=== PATIENT | female | born 1960 | race Caucasian/White ===

== ENCOUNTER → 2024-07-07 15:00 | Outpatient (BNVA) | payer MEDICAID, SELFPAY | PROVIDERS: Visit Provider Internal Medicine Hypertension Specialist | DX: I12.9 Hypertensive chronic kidney disease with stage 1 through stage 4 chronic kidney disease, or unspecified chronic kidney disease (principal); E11.22 Type 2 diabetes mellitus with diabetic chronic kidney disease; N18.2 Chronic kidney disease, stage 2 (mild); E66.9 Obesity, unspecified; R80.9 Proteinuria, unspecified; Z68.42 Body mass index [BMI] 45.0-49.9, adult | CPT/HCPCS: 99202 ==

== ENCOUNTER 2024-07-07 15:03 | Outpatient (AMB) | payer MEDICAID, SELFPAY ==
--- NOTE | 2024-07-07 15:05 | HO.NEPHOV ---
Vital Signs 07/07/24 15:06 Height 5 ft 7 in Weight 288 lb BMI 45.1 BP 148/94 H Blood Pressure Location Lt brachial Position Sitting Pulse 88 Pulse Source Pulse Oximeter Pulse Oximetry (%) 97 Intake Visit Reasons: CKD stage 2/ LVM Pharmaceutical Scientist Required: No Accompanied by: Children Allergies peanut Allergy (Unknown, Verified 07/07/24 15:09) Unknown Penicillins Allergy (Unknown, Verified 07/07/24 15:09) Unknown Medication List - Last Reconciled 07/07/24 by Koby Davalos MD acetaminophen (Tylenol) 325 mg PO QID PRN cholecalciferol (vitamin D3) 1,250 mcg PO QWEEK clonazepam 2 mg PO BID PRN evolocumab (Repatha Syringe) mg subcut Q2W ferrous sulfate 27 mg PO DAILY fluoxetine 60 mg PO DAILY iron aspgly,[id number] 150-60-25-1 wp-[id number]-[id number]-mg (Ferrex) 1 cap PO DAILY metaxalone 800 mg PO BID metformin 850 mg PO BID pantoprazole 40 mg PO DAILY propranolol 10 mg PO BID tramadol 50 mg PO BID PRN HPI Comments Details: Sonya is a pleasant 64-year-old man with a history of obesity diabetes mellitus and hypertension. She was found to have microalbuminuria and hence this referral. She was prescribed semaglutide but she was not take Can this yet. She is not on any ENZO inhibitors or ARB is. She is on propranolol which apparently was given few years ago for hypertension. She was accompanied by her family members. [facility] Medical History (Updated 07/07/24 @ 15:27 by Koby Davalos MD) Hypercholesteremia Hyperparathyroidism Hypercalcemia Restrictive lung disease Essential hypertension Hypertensive heart disease without heart failure Chronic pain disorder Tachycardia Migraine GERD (gastroesophageal reflux disease) Osteoarthritis Anxiety and depression Type 2 diabetes mellitus Review of Systems Const Denies fever(s) and Denies weight loss Card Denies chest pain Resp Denies cough and Denies hemoptysis GI Denies abdominal pain, Denies diarrhea and Denies nausea Musc Denies back pain Neuro Denies focal weakness Physical Exam Vital Signs: Last Vital Signs Pulse 88 07/07/24 15:06 BP 148/94 H 07/07/24 15:06 Pulse Ox 97 07/07/24 15:06 BMI result Body Mass Index 45.1 Const General: comfortable; No acute distress Nutritional Appearance: obese Orientation/consciousness: patient oriented x3 Eyes General: appearance normal, both eyes and all related structures Visual Armas: normal visual armas by confrontation Neck Neck: Yes supple and Yes no JVD Resp Effort & Inspection: normal respiratory effort and respiratory effort not decreased Auscultation: rhonchi Cardio Palpation: no palpable S3 and no palpable S4 Heart sounds: no rubs GI Inspection: Yes normal to inspection Palpation (GI): Soft to palpation Percussion: Yes normal to percussion Auscultation: normal bowel sounds General: Yes no CVA tenderness Back/Spine/Pelvis Back: no CVA tenderness Skin General skin exam: no petechiae and no purpura Neuro General: patient oriented x3 and no focal motor deficits Extrem General: No clubbing and No edema Results Reviewed Results Reviewed: Serum creatinine 0.8. Nephrology Results: No Data to Display Assessment & Plan Assessment & Plan (1) Microalbuminuria: Code(s): R80.9 - Proteinuria, unspecified Category: Medical (2) Essential hypertension: Code(s): I10 - Essential (primary) hypertension Category: Medical Plan 64-year-old man with obesity diabetes mellitus hypertension with microalbuminuria. Renal function stable with a serum creatinine 0.8 mg/dL. She has underlying diabetic kidney disease. Goal is to slow the portion disease Maintain A1c less than 7%. She will benefit from ENZO inhibition. I will start her on losartan 50 mg once a day. Maintain blood pressure less than 130/80 He will also benefit from SGLT2 inhibitors. Orders: Orders Basic Metabolic Panel 6 Weeks R80.9 - Proteinuria, unspecified UA and rflx microscopic 6 Weeks R80.9 - Proteinuria, unspecified Creatinine 6 Weeks R80.9 - Proteinuria, unspecified Total Protein Urine Random 6 Weeks R80.9 - Proteinuria, unspecified Medications: New losartan 50 mg PO DAILY 90 tabs 1RF Scribe Plan - Not visible on output: dc propanolol losartan 50 mg not taking semaglutide Coding Level of Care Code New Pt Level 4 (05718) Diagnoses Microalbuminuria R80.9 Essential hypertension I10
[2024-07-07 15:06] VITALS: BP 148/94; PULSE 88; O2SAT 97; BMI 45.1
== END 2024-07-07 15:32 | disposition home or self-care (01) ==
PROVIDERS: Visit Provider Internal Medicine Hypertension Specialist
DX: R80.9 Proteinuria, unspecified (principal); I10 Essential (primary) hypertension; E11.29 Type 2 diabetes mellitus with other diabetic kidney complication
CPT/HCPCS: 99204

== ENCOUNTER 2025-01-05 15:39 | Outpatient (AMB) | payer MEDICAID, SELFPAY ==
--- NOTE | 2025-01-05 15:35 | HO.NEPHOV ---
Vital Signs 01/05/25 15:37 Height 5 ft 7 in Weight 257 lb BMI 40.2 Intake Visit Reasons: FU/Conf Jet Blade Polisher Required: No Accompanied by: Self / Same As Patient Allergies peanut Allergy (Unknown, Verified 01/05/25 15:36) Unknown Penicillins Allergy (Unknown, Verified 01/05/25 15:36) Unknown Medication List - Last Reconciled 01/05/25 by Koby Davalos MD acetaminophen (Tylenol) 325 mg PO QID PRN cholecalciferol (vitamin D3) 1,250 mcg PO QWEEK clonazepam 2 mg PO BID PRN cyanocobalamin (vitamin B-12) ER 1,000 mcg PO DAILY evolocumab (Repatha Syringe) mg subcut Q2W ferrous sulfate 27 mg PO DAILY fluoxetine 60 mg PO DAILY iron aspgly,[id number] 150-60-25-1 lm-mc-qrs-mg (Ferrex) 1 cap PO DAILY metaxalone 800 mg PO BID metformin 850 mg PO BID pantoprazole 40 mg PO DAILY tramadol 50 mg PO BID PRN HPI Comments Details: Sonya is a pleasant 64-year-old woman with a history of obesity diabetes mellitus and hypertension. She was found to have microalbuminuria and hence this referral. She was prescribed semaglutide but she was not take Can this yet. She is not on any ENZO inhibitors or ARB is. She is on propranolol which apparently was given few years ago for hypertension. She was accompanied by her family members. 01/05/25 She stopped Losartan BP remains elevated c/o Knee pain [facility] Medical History (Updated 07/07/24 @ 15:27 by Koby Davalos MD) Hypercholesteremia Hyperparathyroidism Hypercalcemia Restrictive lung disease Essential hypertension Hypertensive heart disease without heart failure Chronic pain disorder Tachycardia Migraine GERD (gastroesophageal reflux disease) Osteoarthritis Anxiety and depression Type 2 diabetes mellitus Physical Exam Vital Signs: BMI result Body Mass Index 40.2 Telehealth Telehealth Telehealth Platform: Telephone Location of provider rendering services: practice address Location of patient: address on file Patient Identification confirmed using: Name, : Yes Telehealth method: voice only Patient verbally consented to treatment: Yes Patient verbally consented to billing insurance company: Yes Patient informed of any privacy concerns related to visit: Yes Minutes spent on Phone/Video with Pt.: 10 Results Reviewed Nephrology Results: No Data to Display Assessment & Plan Assessment & Plan (1) Microalbuminuria: Code(s): R80.9 - Proteinuria, unspecified Category: Medical (2) Essential hypertension: Code(s): I10 - Essential (primary) hypertension Category: Medical Plan 64-year-old woman with obesity diabetes mellitus hypertension with microalbuminuria. Renal function stable with a serum creatinine 0.8 mg/dL. She has underlying diabetic kidney disease. Goal is to slow the portion disease Maintain A1c less than 7%. She will benefit from ENZO inhibition. Discontinue losartan 50 mg once a day. Start Lisinopril 10 mg QD and monitore BP and urine protein excretion Titrate dose as tolerated Maintain blood pressure less than 130/80 She will also benefit from SGLT2 inhibitors. Medications: New lisinopril 10 mg PO DAILY 90 tabs 1RF Discontinued losartan Discontinued Reason: No Longer Medically Relevant 50 mg PO DAILY 90 tabs 1RF Coding Level of Care Code Tele Est Pt Level 3 (27812) Diagnoses Microalbuminuria R80.9 Essential hypertension I10
[2025-01-05 15:37] VITALS: BMI 40.2
--- OUTSIDE RECORDS SUMMARY | 2025-01-05 15:42 | XMS_ITS | Encounter Summary ---
Author Organization [facility] and [facility] Address [address] [place] [address] Care Team Providers Care Commercial Interior Designer Name Role Phone Linnea Leach APRN Primary Care Provider [phone] Encounter Details Date Type Department Care Team (Late st Contact Info) Description 06/21/2016 Scanned Document [facility] [address] [facility] [address] [facility] [address] [place] [address] Michael Sanchez MD [address] [address] Social History Tobacco Use Types Packs/Day Years Used Date Smoking Tobacco: Former Cigarettes 0.2 40 Comments:quit 2004 Alcohol Use Standard Drinks/Week Comments No 0 (1 standard drink = 0.6 oz pur e alcohol) Comments No Sex and Gender Information Value Date Recorded Sex Assigned at Not on file Legal Sex Female 7:30 AM EST Gender Identity Not on file Sexual Orientation Not on file Occupation Industry Job Start Date Job End Date unemployed Not on file Not on file Not on file documented as of this encounter Plan of Treatment Not on file documented as of this encounter Goals Goal Patient Goal Type Associated Problems Recent Progress Patient-Stated? Author Have 3 meals a day Diet On track( 2:37 PM EST) No Dang, Jaron Ward RD Note: Patient will try to have meals on a more regular schedule Eat more fruits and vegetables Diet On track(11/07/2 016 2:37 PM EST) No DangJaron RD Note: Increase intake of fruits and vegetables on a daily basis DSME: MONITORING Result Component No DangJaron RD Note: Patient will keep a log of her food intake and blood sugars for one week. Weight (lb) < 138.3 kg Weight 136 kg(10/08/2021 11:00 AM EST) No DangJaron RD Note: Patient will work at a first weight goal of 305# documented as of this encounter Visit Diagnoses Not on filedocumented in this encounter Additional Health Concerns Infection Onset Date Last Indicated Resolved Time R/O COVID-19 06/20/2021 06/20/2021 06/21/2021 1:42 PM EDT Assessment Noted Time PHQ-9 Depression Total Score: 2 06/12/20 15 2:52 PM EDT documented as of this encounter Care Teams Commercial Interior Designer Relationship Specialty Start Date End Date Linnea Leach APRN [address] [phone] PCP - General 04/06/21 documented as of this encounter
--- OUTSIDE RECORDS SUMMARY | 2025-01-05 15:42 | XMS_ITS ---
Author Organization [facility] Address [address] [address] Care Team Providers Care Dry Goods Inspector Name Role Phone JOSUE MORALES Primary Care Provider [phone] Allergies Allergen (clinical drug ingredient) Drug/Non Drug Allergy documented on EMR Reaction Allergy Type Onset Date Status Penicillin (uncoded) Unknown Allergy Active REASON FOR VISIT REFILL, 3-4 MO F/U Medications Medication SIG (Take, Route, Frequency, Duration) Notes Start Date End Date Status OneTouch Ultra Test Strip - USE TO TEST TWICE A DAY for 90 days Active Farxiga 5 mg 1 tab(s) orally once a day for 90 days Active Deep Sea Nasal [place]nd[place] 0.65% 2 spray(s) intranasally 4 times a day for 30 days Active Propranolol Hydrochloride 10 mg 1 tab(s) orally 2 times a day for 90 days Active Ferrex 150 Forte Plus Vitamin B Complex with C, Folic Acid and Iron 1 cap(s) orally once a day for 90 days 10/28/2024 Active D3-50 1250 mcg 1 cap(s) orally once a week for 90 day(s) Active Alcohol Pads 100CT, 100 ea - 1 topically as directed for injections for 30 day(s) Active fluticasone nasal 50 mcg/inh 1 spray(s) in each nostril once a day for 30 days Active OneTouch Ultra Soft Lancet - lancet USE TO TEST TWICE A DAY for 90 days Active ONE TOUCH METER - 1 machine subcutaneo usly twice a day for 30 day Active Doxycycline Hyclate hyclate 100 mg 1 tab(s) orally 2 times a day for 14 days 05/19/2024 Active pantoprazole 40 mg 1 tab(s) orally once a day for 90 days Active Sulfamethoxazole-Trimeth oprim DS 800 mg-160 mg as directed orally every 12 hours for 10 days 07/14/2024 Active Metformin Hydrochloride 850 take 1 tablet by mouth twice daily orally twice a day for 90 days Active losartan 50 mg 1 tab(s) orally once a day Active metaxalone 800 mg 1 tablet orally TWIC E NIGHTLY for 90 days Active clonazePAM 2 mg 1 tab(s) orally twic e a day for 90 days 01/03/2025 Active Ozempic 2 mg/3 mL (0.25 mg or 0.5 mg dose) 0.25mg subcutaneously once a week for 30 days 03/24/2024 Not-Taki ng FLUoxetine 60 mg 1 tab(s) orally once a day (in the morning) for 90 days Active Rybelsus 3 mg 1 tab(s) orally once a day for 90 days Active B12 (Cyanocobalamin) 1000 mcg 1 tab(s) orally once a day for 90 days Active Repatha Prefilled Syringe 140 mg/mL INJECT 1ML UNDER THE SKIN EVERY 2 WEEKS for 28 Active Social History AUDIT-C (Standard) Question Answer Notes Did you have a drink contain ing alcohol in the past year? Yes How often did you have six o r more drinks on one occasion in the past year? Never (0 point) How many drinks did you have on a typical day when you were drinking in the past year? 1 or 2 drinks (0 point) How often did you have a dri nk containing alcohol in the past year? Monthly or less (1 point) Points 1 Interpretation Negative Section Notes: Ex Smoker: 40 years x 0.75 ppd = 30 pack years- stopped tobacco x 20yrs. EtOH: no abuse Drugs: none Lives. 5 children and lives w/ daughter. /. Vital Signs Temperature 97 degrees Fahrenheit 01/03/2025 Blood pressure systolic 150 mm Hg 01/04/20 25 Blood pressure diastolic 100 mm Hg 025 Heart Rate 106 /min 01/03/2025 Respiratory Rate 16 /min 01/03/2025 Height 5'8 in 01/03/2025 Weight 257 lbs 01/03/2025 BMI 39.07 kg/m2 01/03/2025 Encounters Encounter Location Date Provider Diagnosis [facility] [address] [phone] 01/03/2025 JOSUE MORALES Panic attack F41.0 ; Type 2 diabetes mellitus E11.9 ; Migraine G43.909 ; HLD (hyperlipidemia) E78.5 ; Osteoarthritis M19.90 and Diabetic nephropathy associated with type 2 diabetes mellitus E11.21 Assessments Encounter Date Diagnosis (ICD Code) Assessment Notes Treatment Notes Treatment Clinical Notes Section Notes 01/03/2025 Panic attack (ICD-10 - F41.0) 01/03/2025 Type 2 diabetes mellitus (ICD-10 - E11.9) 01/03/2025 Migraine (ICD-10 - G43.909) 01/03/2025 HLD (hyperlipidemia) (ICD-10 - E78.5) 01/03/2025 Osteoarthritis (ICD-10 - M19.90) 01/03/2025 Diabetic nephropathy associated with type 2 diabetes mellitus (ICD-10 - E11.21) Plan Of Treatment Medication Medication Name Sig Start Date Stop Date Notes clonazePAM 2 mg 1 tab(s) orally twice a day for 90 days FLUoxetine 60 mg 1 tab(s) orally once a day (in the morning) for 90 days Rybelsus 3 mg 1 tab(s) orally once a day for 90 days Next Appt Details Provider Name:JOSUE CUNNINGHAM, 02/08/2025 02:30:00 PM, [address] [place] [address], [address], [place], [phone], Provider Name:JOSUE CUNNINGHAM, 02/21/2025 09:00:00 AM, [address] [place] [address], [phone], Progress Notes * CARLOSChungRODERICK TDOB:[birth year] (64 yo F)Acc No.[id number]:01/03/2025 Progress Notes Patient:?RODERICK ASTORGA Provider:?JOSUE MORALES MD :1960???Age:64 Y???Sex:Female D ate:01/03/2025 Address:[address] [place] [address], [facility] [phone] Check In:02:17 PM ESTCheck O ut:03:26 PM EST Subjective: * Chief Complaints: * ???1. REFILL, 3-4 MO F/U. * HPI: ???GENERAL:? Presents in chronic conditions followup. Taking meds w/o adverse effects. Doing well. No new complications. In good spirits. Active. No social changes. Has been having more migraines last few weeks, about 2x/week. Needs med refills. [fluoxetine, clonazepam, rybelsus]. In good spirits. Difficult to exercise. * Medical History:?Osteoarthri tis, Sinusitis, Migraines, Chronic pain disorder, Chronic sinusitis, DM2/nephropathy, CKD2/anemia, COPD/past tobacco, Anemia/vitB12/iron def, Hypercholesteremia, Vitamin D deficiency, UTI (urinary tract infection), Tachycardia, Restrictive lung disease, PVD (peripheral vascular disease), Panic attack, Other chronic pain, Left axis deviation, Left anterior hemiblock, Iron deficiency anemia, unspecified iron deficiency anemia type, Hypertensive heart disease without heart failure, Headache, migraine, intractable, GERD (gastroesophageal reflux disease), Exposure, Ex-smoker, Essential hypertension, Controlled substance agreement signed, Anxiety and depression, Anemia due to vitamin B12 deficiency, unspecified B12 deficiency, Allergic rhinitis, Hypercalcemia, Type 2 diabetes mellitus with hyperglycemia, without long-term current use of insulin, Diabetic nephropathy associated with type 2 diabetes mellitus, Hyperparathyroidism, JAKI (generalized anxiety disorder), Stage 2 chronic kidney disease, Microalbuminuria, Vitamin B deficiency, Hypertriglyceridemia, Gross hematuria, ADRIÁN (acute kidney injury). * Surgical History:?MAJOR BACK SURGERY 06/11. * Hospitalization/Major Diagno stic Procedure:?MAJOR BACK SURGERY 05/2018, Osteoarthritis of right kneww 05/20/2019. * Family History:?Father: dece ased.?Mother: .?Paternal Grand Father: .?Paternal Grand Mother: .?Maternal Grand Father: .?Maternal Grand Mother: . Siblings: alive.?Children: alive.?4 brother(s) , 1 sister(s) - healthy. 1 son(s) , 1 daughter(s) - healthy. .? * Social History:?Drug/Alcohol:?AUDIT-C (Standard)?Did you have a drink containing alcohol in the past year??Yes,?How often did you have six or more drinks on one occasion in the past year??Never (0 point),?How many drinks did you have on a typical day when you were drinking in the past year??1 or 2 drinks (0 point),?How often did you have a drink containing alcohol in the past year??Monthly or less (1 point),?Points?1,?Interpretation?Negative.?Ex Smoker: 40 years x 0.75 ppd = 30 pack years- stopped tobacco x 20yrs. EtOH: no abuse Drugs: none Lives. 5 children and lives w/ daughter. /. * Medications:?Taking Doxycycl ine Hyclate hyclate 100 mg tablet 1 tab(s) orally 2 times a day , Taking clonazePAM 2 mg tablet 1 tab(s) orally twice a day , Taking Rybelsus 3 mg tablet 1 tab(s) orally once a day , Taking FLUoxetine 60 mg tablet 1 tab(s) orally once a day (in the morning) , Taking pantoprazole 40 mg delayed release tablet 1 tab(s) orally once a day , Taking Metformin Hydrochloride 850 take 1 tablet by mouth twice daily orally twice a day , Taking Sulfamethoxazole-Trimethoprim DS 800 mg- 160 mg tablet as directed orally every 12 hours , Taking losartan 50 mg tablet 1 tab(s) orally once a day , Taking ONE TOUCH METER - 1 machine subcutaneously twice a day , Taking D3-50 1250 mcg capsule 1 cap(s) orally once a week , Taking fluticasone nasal 50 mcg/inh spray 1 spray(s) in each nostril once a day , Taking Alcohol Pads 100CT, 100 ea - 1 topically as directed for injections , Taking OneTouch Ultra Soft Lancet - lancet USE TO TEST TWICE A DAY , Taking OneTouch Ultra Test Strip - USE TO TEST TWICE A DAY , Taking Deep Sea Nasal [place] 0.65% spray 2 spray(s) intranasally 4 times a day , Taking Farxiga 5 mg tablet 1 tab(s) orally once a day , Taking Ferrex 150 Forte Plus Vitamin B Complex with C, Folic Acid and Iron capsule 1 cap(s) orally once a day , Taking Propranolol Hydrochloride 10 mg tablet 1 tab(s) orally 2 times a day , Taking Repatha Prefilled Syringe 140 mg/mL solution INJECT 1ML UNDER THE SKIN EVERY 2 WEEKS , Taking B12 (Cyanocobalamin) 1000 mcg tablet, extended release 1 tab(s) orally once a day , Taking metaxalone 800 mg tablet 1 tablet orally TWICE NIGHTLY , Not-Taking/PRN Ozempic 2 mg/3 mL (0.25 mg or 0.5 mg dose) solution 0.25mg subcutaneously once a week , Medication List reviewed and reconciled with the patient * Allergies:?Penicillin. Objective: * Vitals:?SpO2: 97, BP:150/100 , HR: 106, RR: 16, Temp: 97 F, Ht: 5'8 , Wt: 257, BMI:39.07. Assessment: * Assessment: 1.?Panic attack - F41.0???2. ?Type 2 diabetes mellitus - E11.9???3.?Migraine - G43.909???4.?HLD (hyperlipidemia) - E78.5???5.?Osteoarthritis - M19.90???6.?Diabetic nephropathy associated with type 2 diabetes mellitus - E11.21??? Plan: * Treatment: 2.?Type 2 diabetes mellitus? Refill Rybelsus tablet, 3 mg, 1 tab(s), orally, once a day, 90 days, 90 Tablet, Refills 4.?? 3.?Others? Refill FLUoxetine tablet, 60 mg, 1 tab(s), orally, once a day (in the morning), 90 days, 90 tab, Refills 3.?? Care Plan: * Problems:? * Care Plan Details* * Electronic signature of CINHTYA MORALES MD on 01/05/2025 at 03:41 PM EDT Sign off status: Pending * Provider:?JOSUE MORALES MD Date:?07/2025 Generated for Daniel abdi/David/Margarito on:?01/05/2025 03:41 PM EDT
--- OUTSIDE RECORDS SUMMARY | 2025-01-05 15:43 | XMS_ITS | Encounter Summary ---
Author Organization [facility] Address [address] [place] [address] Care Team Providers Care Manager Telecom Name Role Phone Linnea Leach APRN Primary Care Provider [phone] Reason for Referral * Consultation (Routine) - Closed Specialty Diagnoses / Procedures Referred By Contact Referred To Contact Endocrinology, Diabetes & Metabolism / Endocrine Medicine Diagnoses Hyperparathyroidism (HC Code) Rocio Sanchez MD [address] [place] [phone] Phone: tel: fax: [facility] End[facility] [address] [place] [address] Phone: tel: fax: Referral ID Status Reason Start Date Expiration Date V isits Requested Visits Authorized [id number] Closed Specialty Services Required 12/08/2023 12/07/2024 1 1 Encounter Details Date Type Department Care Team (Latest Contact Info) Description 12/08/2023 Transcribed Orders EXTERNAL REFERRAL SOURCE [address] [place] [id number] Rocio Sanchez MD [address] [place] [phone] Hyperparathyroidism (HC Code) (Primary Dx) Social History Tobacco Use Types Packs/Day Years Used Date Smoking Tobacco: Former Cigarettes 0.2 40 0 05/12/1965 - 05/12/2005 Smokeless Tobacco: Never Comments:quit 2004 Alcohol Use Standard Drinks/Week Comments [...] as of this encounter Plan of Treatment Scheduled Referrals Name Type Priority Associated Diagnoses Order Schedule Ambulatory referral to Endocrinology Outpatient Referral Routine Hyperparathyroidism (HC Code) Ordered: 12/08/2023 documented as of this encounter Goals Goal Patient Goal Type Associated Problems Recent Progress Patient-Stated? Author Have 3 meals a day Diet On track( 016 2:37 PM EST) No DangJaron RD Note: Patient will try to have meals on a more regular schedule Eat more fruits and vegetables Diet On track( 016 2:37 PM EST) No DangJaron RD Note: Increase intake of fruits and vegetables on a daily basis DSME: MONITORING Result Component No Jaron Leong RD Note: Patient will keep a log of her food intake and blood sugars for one week. Weight (lb) < 138.3 kg Weight 136 kg(10/08/2021 11:00 AM EST) No DangJaron gonzalez RD Note: Patient will work at a first weight goal of 305# documented as of this encounter Visit Diagnoses Diagnosis Hyperparathyroidism (HC Code)- Primary Hyperparathyroidism, unspecified documented in this encounter Additional Health Concerns Assessment Noted Time PHQ-9 Depression Total Score: 2 06/12/20 15 2:52 PM EDT documented as of this encounter Care Teams Manager Telecom Relationship Specialty Start Date End Date Linnea Leach APRN [address] [phone] PCP - General 04/06/21 documented as of this encounter
--- OUTSIDE RECORDS SUMMARY | 2025-01-05 15:43 | XMS_ITS | Encounter Summary ---
Author Organization [facility] and [facility] Address [address] [place] [address] Care Team Providers Care Help Desk Analyst Name Role Phone Linnea Leach APRN Primary Care Provider [phone] Encounter Details Date Type Department Care Team (Late st Contact Info) Description 12/15/2023 Scanned Document [facility] SCHEDULING [address] [place] [address] Rocio Sanchez MD [address] [place] [phone] Social History Tobacco Use Types Packs/Day Years [...] daily basis DSME: MONITORING Result Component No DangJarno RD Note: Patient will keep a log of her food intake and blood sugars for one week. Weight (lb) < 138.3 kg Weight 136 kg(10/08/2021 11:00 AM EST) No DangJaron RD Note: Patient will work at a first weight goal of 305# documented as of this encounter Procedures Procedure Name Priority Date/Time Associated Diagnosis Comments [facility] BONE DENSITY Routine 12/13/2023 2:43 PM EDT documented in this encounter Results * [facility] Bone Density (12/13/2023 2:43 PM EDT) Anatomical Region Laterality Modality Radiographic Mariela ging Rocio Sanchez MD IMG [facility] NON REP ORDERABLES Fi nal Result documented in this encounter Visit Diagnoses Not on filedocumented in this encounter Additional Health Concerns Assessment Noted Time PHQ-9 Depression Total Score: 2 06/12/20 15 2:52 PM EDT documented as of this encounter Care Teams Help Desk Analyst Relationship Specialty Start Date End Date Linnea Leach APRN [address] [phone] PCP - General 04/06/21 documented as of this encounter
--- OUTSIDE RECORDS SUMMARY | 2025-01-05 15:43 | XMS_ITS | Encounter Summary ---
Author Organization [facility] and [facility] Address [address] [place] [address] Care Team Providers Care Bale Breaker Operator Name Role Phone Linnea Leach APRN Primary Care Provider [phone] Reason for Referral * Consultation (Routine) - New Request Specialty Diagnoses / Procedures Referred By Zehra fernandez Referred To Contact Otolaryngology Diagnoses Chronic sinusitis, unspecified location Rocio Sanchez MD [address] [place] [phone] Phone: tel: fax: Otolaryngology at [address] [place] [address] Phone: tel: fax: Referral ID Status Reason Start Date Expiration Date Visits Requested Visits Authorized [id number] New Request Specialty Services Required 05/21/2024 05/21/2025 1 1 Encounter Details Date Type Department Care Team (Latest Contact Info) Description 05/21/2024 Transcribed Orders EXTERNAL REFERRAL SOURCE [address] [place] [id number] Rocio Sanchez MD [address] [place] [phone] Chronic sinusitis, unspecified location (Primary Dx) Social History Tobacco Use Types [...] Scheduled Referrals Name Type Priority Associated Diagnoses Orde r Schedule Ambulatory referral to ENT Outpatient Referral Routine Chronic sinusitis, unspecified location Ordered: 05/21/2024 documented as of this encounter Goals Goal [...] as of this encounter Visit Diagnoses Diagnosis Chronic sinusitis, unspecified location- Primary documented in this encounter Additional Health Concerns Assessment Noted Time PHQ-9 Depression Total Score: 2 06/12/20 15 2:52 PM EDT documented as of this encounter Care Teams Bale Breaker Operator Relationship Specialty Start Date End Date Linnea Leach APRN [address] [phone] PCP - General 04/06/21 documented as of this encounter
--- OUTSIDE RECORDS SUMMARY | 2025-01-05 15:43 | XMS_ITS | Encounter Summary ---
Author Organization [facility] and [facility] Address [address] [place] [address] Care Team Providers Care Single Needle Tufting Machine Operator Name Role Phone Linnea Leach APRN Primary Care Provider Encounter Details Date Type Department Care Team (Late st Contact Info) Description 07/27/2015 Scanned Document [facility] [address] [facility] [address] [place] [address] Mane Cannon MD [address] [place] [address] Social History Tobacco Use Types Packs/Day Years Used Date Smoking Tobacco: Former Cigarettes 0.2 10 Comments:quit 2004 Alcohol Use Standard Drinks/Week Comments [...] on file documented as of this encounter Visit Diagnoses Not on filedocumented in this encounter Additional Health Concerns Infection Onset Date Last Indicated Resolved Time R/O COVID-19 06/20/2021 06/20/2021 06/21/2021 1:42 PM EDT Assessment Noted Time PHQ-9 Depression Total Score: 2 06/12/20 15 2:52 PM EDT documented as of this encounter Care Teams Single Needle Tufting Machine Operator Relationship Specialty Start Date End Date Linnea Leach APRN [address] [phone] PCP - General 04/06/21 documented as of this encounter
--- OUTSIDE RECORDS SUMMARY | 2025-01-05 15:43 | XMS_ITS | Clinical Summary ---
Author Organization [facility] Address [address] [place] [address] Care Team Providers Care Matcher Operator Name Role Phone Rocio Sanchez MD Primary Care Provider [phone] Allergies Active Allergy Reactions Criticality Noted Date Comments Peanuts Anaphylaxis High 04/30/2023 Penicillins Anaphylaxis High 04/30/2023 Throat swelling Medications Rybelsus 3 MG tablet Take 3 mg by mouth daily. 4 Active PANTOprazole (PROTONIX) 40 MG EC tablet Take 40 mg by mouth daily. 4 Active metFORMIN (GLUCOPHAGE) 850 MG tablet Take 850 mg by mouth 2 (two) times a day. 4 Active fluticasone (FloNASE) 50 mcg/spray nasal spray SPRAY 1 SPRAY INTO EACH NOSTRIL ONCE A DAY 4 Active FLUoxetine (PROzac) 60 MG Tab 4 Active Ferrex 150 Forte Plus (FERREX 150 FORTE PLUS) 50-100 MG Cap capsule Take 1 capsule by mouth daily. 4 Active cyanocobalamin (VITAMIN B-12) 1000 MCG extended release tablet Take 1,000 mcg by mouth daily. 4 Active clonazePAM (KlonoPIN) 2 MG tablet Take 2 mg by mouth 2 (two) times a day. 4 Active cholecalciferol (CHOLECALCIFEROL) 1.25 MG (86352 UT) capsule TAKE 1 CAP BY MOUTH ONCE A WEEK 4 Active atorvastatin (LIPITOR) 10 MG tablet Take 10 mg by mouth daily. 4 Active twjhly-nzusiozqb-b agnesium sulfates (Suprep Bowel Prep Kit) 17.5-3.13-1.6 GM/177ML Solution solutionIndication s:Colon cancer screening Take two 177 mL bottles as directed 2 each 4 Active traMADol (ULTRAM) 50 MG tabletIndications: Primary osteoarthritis of left knee Take 2 tablets (100 mg total) by mouth nightly as needed for severe pain. 56 tablet 5 025 Active acetaminophen (TYLENOL) 325 MG tablet Take 2 tablets (650 mg total) by mouth nightly as needed. 023 Discontin ued(Patie nt Discharge ) metaxalone (SKELAXIN) 800 MG tablet Take 1 tablet (800 mg total) by mouth 2 times a day. Pt takes one dose at 8pm and one dose at bedtime 023 Discontin ued(Patie nt Discharge ) propranolol (INDERAL) 10 MG tablet Take 1 tablet (10 mg total) by mouth 2 times a day. 023 Discontin ued(Patie nt Discharge ) calcium carbonate (TUMS) 500 MG chewable tablet Chew 2 tablets (1,000 mg total) nightly. 023 Discontin ued(Patie nt Discharge ) traMADol (ULTRAM) 50 MG tabletIndications: Primary osteoarthritis of left knee Take 2 tablets (100 mg total) by mouth nightly as needed for severe pain. 56 tablet 5 025 Discontin ued(Med List Clean-up/ Old Med - No E-Cancel/ No AVS) Encounters Date Type Department Care Team Description 12/20/2024 Refill [facility] [address] [place] [phone] Julián Oneil MD Primary osteoarthritis of left knee 12/20/[address] [place] [phone] Rocio Sanchez MD 11/29/2024 Telephone [facility] [address] [place] [phone] Julián nOeil MD 11/26/2024 Refill [facility] [address] [place] [phone] Julián Oneil MD Primary osteoarthritis of left knee 10/28/2024 Refill [facility] [address] [place] [address] Julián Oneil MD Primary osteoarthritis of left knee from Last 3 Months Immunizations Immunization Administration Dates Next Due Influenza, Quadrivalent (FLU ARIX, AFLURIA, FLULAVAL, FLUZONE) Preservative Free IM 07/02/2022 Social History Tobacco Use Types Packs/Day Years Used Date Smoking Tobacco: Never Smokeless Tobacco: Never Tobacco Cessation:Counseling Given: Not Answered Alcohol Use Standard Drinks/Week Comments Not Currently 0 (1 standard drink = 0.6 oz pur e alcohol) AUDIT-C Answer Date Recorded Q1: How often do you have a drink containing alcohol? Never 04/30/2023 Q2: How many drinks containi ng alcohol do you have on a typical day when you are drinking? Patient does not drink Q3: How often do you have si x or more drinks on one occasion? Never 04/30/2023 Comments Unknown Sex and Gender Information Value Date Recorded Sex Assigned at Female 10/25/2024 7:35 PM EST Legal Sex Female 5:49 PM EDT Gender Identity Not on file Sexual Orientation Not on file Last Filed Vital Signs Vital Sign Reading Time Taken Comments Blood Pressure 132/70 12/15/2023 2:47 PM EDT Pulse 94 12/15/2023 2:47 PM EDT Temperature - - Respiratory Rate - - Oxygen Saturation - - Inhaled Oxygen Concentration - - Weight 135 kg (297 lb) 12/15/2023 2:47 PM EDT Height 167.6 cm (5' 6 ) 12/15/2023 2:47 PM EDT Body Mass Index 47.94 12/15/2023 2:47 PM EDT Plan of Treatment Upcoming Encounters Date Type Department Care Team (Late st Contact Info) Description 01/06/2025 2:45 PM EDT Office Visit [facility] [address] [phone] Julián Oneil MD [address] [place] [phone] 04/27/2025 2:45 PM EDT Office Visit [facility] [address] [place] [phone] Marisa Nelson PA-C [address] [place] [address] Health Maintenance Due Date Last Done Comments Hepatitis C Virus Screening 1961 HIV Screening 1974 Chronic Controlled Substance Toxicology Screening 1979 Controlled Substance Agreement Initial and Annual Review 1979 DTaP/Tdap/Td Vaccines (1 - Tdap) 1980 Pap Smear (Ages 21-65) 1982 Mammogram 2001 Colonoscopy 2006 Pneumococcal Vaccines 50+ (1 of 1 - PCV) 2011 Zoster (Shingles) Vaccine (1 of 2) 2011 RSV Vaccine 60 years and older and Patients (1 - Risk 60-74 years 1-dose series) 2021 COVID-19 Vaccine (3 - 2023-2 5 season) 2024 07/03/2021, 06/12/2021 Chronic Controlled Substance User PDMP Review 02/24/2025 11/26/2024, 06/04/2024 Influenza Vaccine 03/25/2025 07/02/2022 Hepatitis B Vaccines Aged Out No long er eligible based on patient's age to complete this topic Insurance [facility] Care Teams Matcher Operator Relationship Specialty Start Date End Date Rocio Sanchez MD PCP - General Internal Medicine 12/05/22
--- OUTSIDE RECORDS SUMMARY | 2025-01-05 15:43 | XMS_ITS | Encounter Summary ---
Author Organization [facility] and [facility] Address [address] [place] [address] Care Team Providers Care Colorist Name Role Phone Linnea Leach APRN Primary Care Provider [phone] Encounter Details Date Type Department Care Team (Late st Contact Info) Description 12/17/2023 Scanned Document [facility] SCHEDULING [address] [place] [address] Rocio Sanchez MD [address] [place] [phone] Social History Tobacco Use Types Packs/Day [...] Diagnosis Comments [facility] BONE DENSITY Routine 12/13/2023 7:28 PM EDT documented in this encounter Results * [facility] Bone Density (12/13/2023 7:28 PM EDT) Anatomical Region Laterality Modality Radiographic Mariela ging Rocio Sanchez MD IMG [facility] NON REP ORDERABLES Fi nal Result documented in this encounter Visit Diagnoses Not on filedocumented in this encounter Additional Health Concerns Assessment Noted Time PHQ-9 Depression Total Score: 2 06/12/20 15 2:52 PM EDT documented as of this encounter Care Teams Colorist Relationship Specialty Start Date End Date Linnea Leach APRN [address] [phone] PCP - General 04/06/21 documented as of this encounter
--- OUTSIDE RECORDS SUMMARY | 2025-01-05 15:43 | XMS_ITS | Clinical Summary ---
Author Organization [facility] [address] [place] [address] Care Team Providers Care Reeling Machine Setup Operator Name Role Phone Linnea Leach APRN Primary Care Provider [phone] Allergies Active Allergy Reactions Criticality Noted Date Comments Peanut Hives High 12/30/2017 Penicillins Swelling Medium 12/17/2012 Tolerates cephalosporins Medications metFORMIN (GLUCOPHAGE) 850 MG tablet Take 850 mg by mouth 2 (two) times daily with breakfast and dinner. Active pantoprazole (PROTONIX) 40 MG tablet Take 40 mg by mouth Every morning @0700.. Active atorvastatin (LIPITOR) 10 MG tablet Take 10 mg by mouth nightly.. Active FLUoxetine (PROZAC) 40 MG capsule Take 1 capsule by mouth daily along with 20mg capsule for total dose 60mg 9 Active FLUoxetine (PROZAC) 20 MG capsule Take 1 capsule by mouth daily along with 40mg capsule for total dose 60mg Active senna (SENOKOT) 8.6 mg tablet Take 2 tablets by mouth daily as needed for Constipation. Active ClonazePAM (KLONOPIN) 2 MG tablet TAKE ONE TABLET BY MOUTH TWICE A DAY 1 9 Active Miscellaneous Medical Supply Rx: Rolling walker (bariatric due to body habitus), cane; Indication: s/p Right TKA; VINH: 99 weeks 1 each 9 Active aspirin 81 MG EC delayed release tablet Take 1 tablet (81 mg total) by mouth 2 (two) times daily. 64 tablet 9 Active traMADoL (ULTRAM) 50 mg tablet Take 50 mg by mouth nightly. Active acetaminophen (TYLENOL) 325 mg tablet Take 650 mg by mouth every 6 (six) hours as needed. Active metaxalone (SKELAXIN) 800 mg tablet Take 800 mg by mouth. 2 tabs in the evening Active Active Problems Problem Noted Date Diagnosed Date Arthritis of left knee 04/23/2021 Osteoarthritis of right knee 05/17/2019 Impaired mobility and ADLs 06/23/2018 Gait abnormality 06/23/2018 Anemia associated with acute blood loss 06/23/20 ADRIÁN (acute kidney injury) 06/23/2018 Morbid obesity 02/20/2016 Essential hypertension 02/20/2016 Controlled diabetes mellitus 02/20/2016 Anxiety 12/17/2012 Depression 12/17/2012 Benign hypertension with CKD (chronic kidney disease), stage II 12/17/2012 Chronic back pain greater than 3 months duration Spinal stenosis of lumbar re gion with neurogenic claudication Spondylolisthesis of lumbar region Diabetes mellitus Bilateral chronic knee pain Arthritis Family History Medical History Relation Name Comments Throat cancer Father COPD Mother Heart disease Mother Thyroid disease Mother Relation Name Status Comments Daughter 1 Alive Daughter 2 Alive Father Mother Alive Sister Alive Son 1 Alive Son 2 Alive Son 3 Alive Social History Tobacco Use Types Packs/Day Years [...] file Not on file Not on file Last Filed Vital Signs Vital Sign Reading Time Taken Comments Blood Pressure 110/74 10/08/2021 11:00 AM EST Pulse 107 10/08/2021 11:00 AM EST Temperature 36.4 ??C (97.5 ??F) 05/20/2019 5:35 AM ED T Respiratory Rate 18 05/20/2019 5:35 AM EDT Oxygen Saturation 97% 10/08/2021 11:00 AM EST Inhaled Oxygen Concentration - - Weight 136 kg (299 lb 12.8 oz) 10/08/2021 11:00 AM EST Height 172.7 cm (5' 8 ) 10/08/2021 11:00 AM EST Body Mass Index 45.58 10/08/2021 11:00 AM EST Plan of Treatment Health Maintenance Due Date Last Done Comments Pneumococcal Vaccine (2 - 49 years) (1 of 2 - PCV) 1967 Diabetic eye exam 1971 Diabetic foot exam 1971 Urine Microalbumin 1971 HIV screening 1974 Hepatitis C screening 1979 Tetanus adult (Td q 10,TDAP once) 1981 Cervical cancer screening 1982 Breast cancer screening 2001 Colon cancer screening, Colonoscopy 2006 Pneumococcal Vaccine (50+ years) (1 of 1 - PCV) 2011 Shingles vaccine (Shingrix) (1 of 2 - Shingrix (RZV) 2 Dose Standard Series) 2011 LDL monitoring 04/01/2017 04/01/2016 Hemoglobin A1C 11/16/2019 05/18/2019, 04/01/2016 Lipid disorder screening 04/01/2021 04/01/2016, 08/0 03/2016 Diabetes screening 05/18/2022 05/18/2019, 0 05/18/2019, 05/17/2019, Additional history exists Covid-19 vaccine series ( - 2023- season) 2024 07/03/2021, 06/12/2021 Influenza vaccine 04/25/2025 07/02/2022, (Patient declined) RSV Immunization (1 - 1-dose 75+ series) 2036 Meningococcal Vaccine Aged Out No vinh desi eligible based on patient's age to complete this topic Goals Goal Patient Goal Type Associated Problems Recent Progress Patient-Stated? Author Have 3 meals a day Diet On track( 016 2:37 PM EST) No DangJaron RD Note: Patient will try to have meals on a more regular schedule Eat more fruits and vegetables Diet On track( 016 2:37 PM EST) No DangJaron gonzalez RD Note: Increase intake of fruits and vegetables on a daily basis DSME: MONITORING Result Component No DangJaron gonzalez RD Note: Patient will keep a log of her food intake and blood sugars for one week. Weight (lb) < 138.3 kg Weight 136 kg(10/08/2021 11:00 AM EST) No DangJaron RD Note: Patient will work at a first weight goal of 305# Medical Devices Implanted Type Area Teradata Solution Architect Device Identifier Shelf Expiration Date Model / Serial / Lot Readigraft Cancellous Chip 1-8 - [id number] Implanted: by Gulshan Mena MD at [address] (Quantity not on file) Implant Lumbar: Spine Lumbar LIFENET 04/05/2023 [id number] / [id number] / [id number] Hook Pedicle [id number] - [id number] Implanted: by Gulshan Mena MD at [address] (Quantity not on file) Implant Thoracic: Spine Lumbar J Sheeba DHILLON [id number] / / Screw Exp Verse 5.5 5.0 X 40 - [id number] Implanted: by Gulshan Mena MD at [address] (Quantity not on file) Implant Thoracic: Spine Thoracic J Sheeba DHILLON [id number] / / Screw Exp Verse 5.5 5.0 X 45 - [id number] Implanted: by Gulshan Mena MD at [address] (Quantity not on file) Implant Thoracic: Spine Thoracic J Sheeba DHILLON [id number] / / Screw Exp Verse 5.5 6.0 X 50 - [id number] Implanted: by Gulshan Mena MD at [address] (Quantity not on file) Implant Lumbar: Spine Lumbar J Sheeba DHILLON [id number] / / Screw Exp Verse 5.5 6.0 X 35 - [id number] Implanted: by Gulshan Mena MD at [address] (Quantity not on file) Implant Lumbar: Spine Lumbar J Sheeba DHILLON [id number] / / Screw Exp Verse 5.5 8.0 X 80 - [id number] Implanted: by Gulshan Mena MD at [address] (Quantity not on file) Implant Lumbar: Spine Lumbar J Sheeba DHILLON [id number] / / Kamron Pre-Contoure d 455mm - [id number] Implanted: by Gulshan Mena MD at [address] (Quantity not on file) Implant Lumbar: Spine Lumbar J Sheeba DHILLON [id number] / / Screw 5.[address] - [id number] Implanted: by Gulshan Mena MD at [address] (Quantity not on file) Implant Lumbar: Spine Lumbar J Sheeba DHILLON [id number] / / Screw St Sgl Inr Mmsi - [id number] Implanted: by Gulshan Mena MD at [address] (Quantity not on file) Implant Lumbar: Spine Lumbar Sheeba DHILLON [id number] / / Cement Bone Palacos R&G - [id number] Implanted: by Julián Oneil MD at [address] (Quantity not on file) Implant Right: Knee ANDREIA 10/22/2021 [id number] / / [id number] 7C18%8 Cement Bone Palacos R&G - [id number] Implanted: by Julián Oneil MD at [address] (Quantity not on file) Implant Right: Knee ANDREIA 10/22/2021 [id number] / / +[id number] 7C18%8 Femur Attune 5 Ps Rt Sunday - [id number] Implanted: by Julián Oneil MD at [address] (Quantity not on file) Implant Right: Knee Sheeba DHILLON [id number] 02/21/2029 [id number] / / [id number] Attune Fb Tib Base Sz 6 Sunday - [id number] Implanted: by Julián Oneil MD at [address] (Quantity not on file) Implant Right: Knee Sheeba DHILLON [id number] 03/24/2029 [id number] / / [id number] Patella Medial Dome 38mm - [id number] Implanted: by Julián Oneil MD at [address] (Quantity not on file) Implant Right: Knee Sheeba Aly TITA ALEXI RIVERS [id number] 03/24/2024 1518-20-038 / / [id number] Insrt Attune S 5 5 Ps Fb - [id number] Implanted: by Julián Oneil MD at [address] (Quantity not on file) Implant Right: Knee Sheeba Aly TITA ALEXI RIVERS [id number] 12/23/2023 [id number] / / [id number] Procedures Procedure Name Priority Date/Time Associated Diagnosis Comments HEMOGLOBIN A1C Routine 05/18/2019 7:08 AM EDT CHOLESTEROL, TOTAL Routine 04/01/2016 9: 46 AM EDT Obesity (BMI 35.0-39.9 without comorbidity) LDL CHOLESTEROL, DIRECT Routine 04/01/2016 9:46 AM EDT Obesity (BMI 35.0-39.9 without comorbidity) from Last 3 Months or Most Recently Relevant to Health Maintenance Results * (ABNORMAL) Hemoglobin A1c (05/18/2019 7:08 AM EDT) Hemoglobin A1c 6.3(H) 4.0 - 5.6 % 05/18/2019 11:15 AM EDT [facility] Comment: Hemoglobin A1c values of 5.7-6.4 % identify individuals with an increased risk for future diabetes and to whom the term pre-diabetes may be applied. ??Hemoglobin A1c values greater than 6.4% on more than one occasion are diagnostic of diabetes. Lowering HbA1c to below 7% is considered to reduce microvascular and neuropathic complications of diabetes. This boronate affinity Hb A1c method provides accurate analytical results in the presence of nearly all Hb variants. Hb F higher than 10% of total Hb may yield falsely low results. Conditions that shorten red cell survival, such as the presence of unstable hemoglobins like Hb SS, Hb CC, and Hb SC, or other causes of hemolytic anemia may yield falsely low results. Iron deficiency anemia may yield falsely high results. Estimated Average Glucose mg/dL 134 mg/dL 05/18/2019 11:15 AM EDT [facility] Comment: Estimated average glucose (eAG) is a calculated value designed to estimate ??the expected average blood glucose level throughout the day from a single ??measurement of ??glycated hemoglobin A1C (HbA1c) and follows the calculation proposed by the [place] Diabetes Association (Diabetes Care 31: 1-6, 2008). It may have less accuracy in children, women and patients with certain erythrocyte disorders. Blood Venipuncture / Unknown 05/18/2019 7:08 AM EDT 05/18/2019 7:11 AM EDT us Chaya FLORES LAB BLOOD ORDERABLES Jia owen Result Performing Organization Address City/[facility]/ZIP Co de Phone Number [facility] [address] [place] [address] * LDL cholesterol, direct (04/01/2016 9:46 AM EDT) LDL Direct 83 <130 mg/dL [facility] Comment: Desirable range <100 mg/dL for patients with CHD or diabetes and <70 mg/dL for diabetic patients with known heart disease. Blood specimen (specimen) 04/01/2016 9:46 AM EDT 04/01/2016 9:47 AM EDT Narrative [facility] - 04/04/2016 12:44 PM EDT FASTING:YES Resulting Agency Comment Performing Organization Information: ?Site ID: [id number] ?Name: [employer] [facility] ?Address: [address] [place] [address], [place] [address] ?Director: Jenn Grajeda MD us Michael Sanchez MD LAB BLOOD ORDERABLES Final Re sult [facility] [address] [place] [address] * Cholesterol, total (04/01/2016 9:46 AM EDT) Cholesterol, Total 144 125 - 200 mg/dL [facility] Blood specimen (specimen) 04/01/2016 9:46 AM EDT 04/01/2016 9:47 AM EDT Narrative [facility] - 04/04/2016 12:44 PM EDT FASTING:YES Resulting Agency Comment Performing Organization Information: ?Site ID: [id number] ?Name: [facility] ?Address: [address] [place] [address], [place] [address] ?Director: Jenn Grajeda MD us Michael Sanchez MD LAB BLOOD ORDERABLES Final Re sult [facility] [address] [place] [address] from Last 3 Months or Most Recently Relevant to Health Maintenance Insurance [place] Advance Directives * Full ACLS (Latest Code Status on File) Date Activated Date Inactivated Comments 05/17/2019 3:06 PM 05/20/2019 3:55 PM * Full ACLS Date Activated Date Inactivated Comments 06/17/2018 8:36 PM 06/26/2018 9:45 PM * Full ACLS Date Activated Date Inactivated Comments 06/17/2018 5:13 PM 06/17/2018 8:36 PM Question Answer Comments With Whom was the Code Status Discussed? Patient Care Teams Reeling Machine Setup Operator Relationship Specialty Start Date End Date Linnea Leach APRN [address] [place] [address] PCP - General 04/06/21
--- OUTSIDE RECORDS SUMMARY | 2025-01-05 15:43 | XMS_ITS | Encounter Summary ---
Author Organization [facility] and [facility] Address [address] [place] [address] Care Team Providers Care Cream Hauler Name Role Phone Linnea Leach APRN Primary Care Provider [phone] Encounter Details Date Type Department Care Team (Late st Contact Info) Description 12/08/2023 Scanned Document [facility] SCHEDULING [address] [place] [address] Rocio Sanchez MD [address] [place] [phone] Social History Tobacco Use Types Packs/Day [...] Procedure Name Priority Date/Time Associated Diagnosis Comments LAB SCAN Routine 11/08/2023 6:10 PM EDT documented in this encounter Results * Lab Scan (11/08/2023 6:10 PM EDT) Rocio Sanchez MD LAB BLOOD ORDERABLES Final Re sult documented in this encounter Visit Diagnoses Not on filedocumented in this encounter Additional Health Concerns Assessment Noted Time PHQ-9 Depression Total Score: 2 06/12/20 15 2:52 PM EDT documented as of this encounter Care Teams Cream Hauler Relationship Specialty Start Date End Date Linnea Leach APRN [address] [phone] PCP - General 04/06/21 documented as of this encounter
--- OUTSIDE RECORDS SUMMARY | 2025-01-05 15:43 | XMS_ITS | Patient Health Record ---
Author Organization [facility] Address [address] [place] [phone] Care Team Providers Care Air Bag Stripper Name Role Phone Rocio Sanchez Unavailable Unavailable Devendra You Unavailable [phone] Allergies No Known Allergies Reason For Referral No Information Social History Tobacco Use: Social History Observation Description Date Details (start date - stop date) Never Smoker NA - NA * Tobacco Use/Smoking assessment Question Answer Notes Are you a nonsmoker Problems Problem Type SNOMED Code ICD Code Onset Dates Problem Status W/U Status Risk Notes Problem Type 2 diabetes mellitus without complications (E11.9) Active confirmed Encounters Encounter Location Date Provider Diagnosis -Internal Medicine [address] [place] [phone] 06/15/2024 You Ramsay Plan Of Treatment No Information Insurance Providers Payer Name Payer Address Payer Phone Subscriber Number Group Number Insured Name Patient Relationship to Insured Coverage Start Date Coverage End Date [employer] [address] [place], [place] [id number] Sonya Hankins Self - patient is the insured Medical (General) History Surgical History Surgery Date(Month/Year)
--- OUTSIDE RECORDS SUMMARY | 2025-01-05 15:43 | XMS_ITS | Patient Health Record ---
Author Organization [facility], [facility] Address [address] [place] [address] Care Team Providers Care Test Director Name Role Phone JOSUE MORALES Primary Care Provider ROMARIO HOPKINS Unavailable IVAN Lopez Unavailable [phone] KEITH MARIE Unavailable [phone] Allergies Allergen (clinical drug ingredient) Drug/Non Drug Allergy documented on EMR Reaction Allergy Type Onset Date Status Penicillin (uncoded) Unknown Allergy Active Results Component Value Reference Range Notes MYOGLOBIN, URINE Reviewed date:07/01/2024 11:43:57 AM Interpretation: Performing Lab:[facility] [address] [place] [address], [phone] Ethan De La Rosa MD, PhD Notes/Report: FASTING: YES FASTING:YES NON-FASTING; NON-FASTING; NON-FASTING; NON-FASTING; NON-FAST MYOGLOBIN, URINE Reviewed date:07/01/2024 11:43:57 AM Interpretation: Performing Lab:[facility] [address] [place] [address], [phone] Ethan De La Rosa MD, PhD Notes/Report: FASTING: YES FASTING:YES NON-FASTING; NON-FASTING; NON-FASTING; NON-FASTING; NON-FAST MYOGLOBIN, URINE <1 0-1 mg/L The pH of this sample is 10. Urine for myoglobin should have the pH adjusted to between 8.0 - 9.0, as myoglobin is unstable in urine. Results may not reflect the true status of the patient. INTERPRETIVE INFORMATION: Myoglobin, Urine Patients with urine myoglobin greater than 15 mg/L are at risk of acute renal failure. Usual results are less than 1 mg/L. Results between 1 and 15 mg/L are associated with vigorous exercise, myocardial infarction, mild muscle injury and other conditions. This test was developed and its performance characteristics determined by [facility]. It has not been cleared or approved by the US Food and Drug Administration. This test was performed in a CLIA certified laboratory and is intended for clinical purposes. MICROALBUMIN, RANDOM URINE ( W/CREATININE) * Reviewed date:07/01/2024 11:43:57 AM Interpretation: Performing Lab:[facility], [address] [place] [address], [phone] Jenn Grajeda M.D. Notes/Report: NON-FASTING; NON-FASTING; NON-FASTING; NON-FASTING; NON-FAST FASTING:YES FASTING: YES CREATININE, RANDOM URINE 222 20-275 mg/dL ALBUMIN, URINE 96.1 See Note: mg/dL Reference Range: Reference Range Not established Verified by repeat analysis. ALBUMIN/CREATININE RATIO, RANDOM URINE 433 <30 mg/g creat The ADA defines abnormalities in albumin excretion as follows: Albuminuria Category Result (mg/g creatinine) Normal to Mildly increased <30 Moderately increased 30-299 Severely increased > OR = 300 The ADA recommends that at least two of three specimens collected within a 3-6 month period be abnormal before considering a patient to be within a diagnostic category. TSH Reviewed date:10/23/2024 12:00:27 PM Interpretation: Performing Lab:[facility], [facility], [address] [place] [address], [phone] Jenn Grajeda M.D. Notes/Report: FASTING: YES FASTING:YES NON-FASTING TSH 2.17 0.40-4.50 mIU/L URINALYSIS REFLEX Reviewed date:11/01/2024 08:40:01 AM Interpretation: Performing Lab:[facility], [facility], [address] [place] [address], [phone] Salim E Kabawat M.D. Notes/Report: NON-FASTING FASTING:YES FASTING: YES COLOR YELLOW YELLOW APPEARANCE CLOUDY CLEAR SPECIFIC GRAVITY 1.021 1.001-1.035 PH 5.5 5.0-8.0 GLUCOSE NEGATIVE NEGATIVE BILIRUBIN NEGATIVE NEGATIVE KETONES NEGATIVE NEGATIVE OCCULT BLOOD 1+ NEGATIVE PROTEIN 1+ NEGATIVE NITRITE NEGATIVE NEGATIVE LEUKOCYTE ESTERASE 2+ NEGATIVE WBC > OR = 60 < OR = 5 /HPF RBC 10-20 < OR = 2 /HPF SQUAMOUS EPITHELIAL CELLS 0-5 < OR = 5 /HPF BACTERIA NONE SEEN NONE SEEN /HPF CALCIUM OXALATE CRYSTALS FEW NONE OR FEW /HPF HYALINE CAST 0-5 NONE SEEN /LPF YEAST NONE SEEN NONE SEEN /HPF CBC (INCLUDES DIFF/PLT) Reviewed date:10/23/2024 12:00:20 PM Interpretation: Performing Lab:[facility], [employer], [address] [place] [address], [phone] Jenn Grajeda M.D. Notes/Report: NON-FASTING FASTING:YES FASTING: YES WHITE BLOOD CELL COUNT 8.1 3.8-10.8 Thousand/ uL RED BLOOD CELL COUNT 5.29 3.80-5.10 Million/uL HEMOGLOBIN 12.8 11.7-15.5 g/dL HEMATOCRIT 42.7 35.0-45.0 % MCV 80.7 80.0-100.0 fL MCH 24.2 27.0-33.0 pg MCHC 30.0 32.0-36.0 g/dL For adults, a slight decrease in the calculated MCHC value (in the range of 30 to 32 g/dL) is most likely not clinically significant; however, it should be interpreted with caution in correlation with other red cell parameters and the patient's clinical condition. RDW 15.1 11.0-15.0 % PLATELET COUNT 282 140-400 Thousand/uL MPV 11.9 7.5-12.5 fL ABSOLUTE NEUTROPHILS [phone] cells/uL ABSOLUTE LYMPHOCYTES 7170 581-7089 cells/uL ABSOLUTE MONOCYTES 551 200-950 cells/uL ABSOLUTE EOSINOPHILS 454 15-500 cells/uL ABSOLUTE BASOPHILS 41 0-200 cells/uL NEUTROPHILS 67.8 LYMPHOCYTES 19.3 MONOCYTES 6.8 EOSINOPHILS 5.6 BASOPHILS 0.5 Hepatic Function Panel * Reviewed date:10/23/2024 12:00:41 PM Interpretation: Performing Lab:[facility], [facility], [address] [place], [phone] Jenn Grajeda M.D. Notes/Report: NON-FASTING FASTING:YES FASTING: YES PROTEIN, TOTAL 6.6 6.1-8.1 g/dL ALBUMIN 4.1 3.6-5.1 g/dL GLOBULIN 2.5 1.9-3.7 g/dL (calc) ALBUMIN/GLOBULIN RATIO 1.6 1.0-2.5 (calc) BILIRUBIN, TOTAL 0.3 0.2-1.2 mg/dL BILIRUBIN, DIRECT 0.1 < OR = 0.2 mg/dL BILIRUBIN, INDIRECT 0.2 0.2-1.2 mg/dL (calc) ALKALINE PHOSPHATASE 70 37-153 U/L AST 19 10-35 U/L ALT 17 6-29 U/L Lipid Panel * Reviewed date:10/23/2024 12:01:09 PM Interpretation: Performing Lab:[facility], [facility], [address] [place] [address], [phone] Jenn Grajeda M.D. Notes/Report: FASTING: YES FASTING:YES NON-FASTING CHOLESTEROL, TOTAL 185 <200 mg/dL HDL CHOLESTEROL 59 > OR = 50 mg/dL TRIGLYCERIDES 186 <150 mg/dL LDL-CHOLESTEROL 98 Reference range: <100 Desirable range <100 mg/dL for primary prevention; <70 mg/dL for patients with CHD or diabetic patients with > or = 2 CHD risk factors. LDL-C is now calculated using the Emerson-Chacha calculation, which is a validated novel method providing better accuracy than the Friedewald equation in the estimation of LDL-C. Emerson MORALES et al. ROBBIN. 2013;310(19): 0669-9245 (http://education.[employer]/faq/AGM232) CHOL/HDLC RATIO 3.1 <5.0 (calc) NON HDL CHOLESTEROL 126 <130 mg/dL (calc) For patients with diabetes plus 1 major ASCVD risk factor, treating to a non-HDL-C goal of <100 mg/dL (LDL-C of <70 mg/dL) is considered a therapeutic option. Basic Metabolic Panel * Reviewed date:10/23/2024 12:01:04 PM Interpretation: Performing Lab:[facility], [facility], [address] [place] [address], [phone] Jenn Grajeda M.D. Notes/Report: NON-FASTING FASTING:YES FASTING: YES GLUCOSE 121 65-99 mg/dL Fasting reference interval For someone without known diabetes, a glucose value between 100 and 125 mg/dL is consistent with prediabetes and should be confirmed with a follow-up test. UREA NITROGEN (BUN) 17 7-25 mg/dL CREATININE 1.09 0.50-1.05 mg/dL EGFR 57 > OR = 60 mL/min/1.73m2 BUN/CREATININE RATIO 16 6-22 (calc) SODIUM 141 135-146 mmol/L POTASSIUM 4.1 3.5-5.3 mmol/L CHLORIDE 103 98-110 mmol/L CARBON DIOXIDE 26 20-32 mmol/L CALCIUM 10.4 8.6-10.4 mg/dL URINE UREA NITROGEN, RANDOM (W/O CREATININE) Reviewed date:07/01/2024 11:43:57 AM Interpretation: Performing Lab:[facility], [facility], [address] [place] [address], [phone] Jenn Grajeda M.D. Notes/Report: NON-FASTING; NON-FASTING; NON-FASTING; NON-FASTING; NON-FAST FASTING:YES FASTING: YES UREA NITROGEN (U) RANDOM 550 No normals available for specimens other than 24 hour collections. Urinalysis Complete Reviewed date:07/01/2024 11:43:57 AM Interpretation: Performing Lab:[facility], [facility], [address] [place] [address], [phone] Jenn Grajeda M.D. Notes/Report: FASTING: YES FASTING:YES NON-FASTING; NON-FASTING; NON-FASTING; NON-FASTING; NON-FAST COLOR DARK YELLOW YELLOW APPEARANCE CLOUDY CLEAR SPECIFIC GRAVITY 1.030 1.001-1.035 PH 5.5 5.0-8.0 GLUCOSE NEGATIVE NEGATIVE BILIRUBIN NEGATIVE NEGATIVE KETONES TRACE NEGATIVE OCCULT BLOOD 3+ NEGATIVE PROTEIN 3+ NEGATIVE NITRITE NEGATIVE NEGATIVE LEUKOCYTE ESTERASE 2+ NEGATIVE WBC > OR = 60 < OR = 5 /HPF RBC > OR = 60 < OR = 2 /HPF SQUAMOUS EPITHELIAL CELLS 0-5 < OR = 5 /HPF BACTERIA FEW NONE SEEN /HPF CALCIUM OXALATE CRYSTALS MANY NONE OR FEW /HPF HYALINE CAST 10-20 NONE SEEN /LPF This urine was analyzed for the presence of WBC, RBC, bacteria, casts, and other formed elements. Only those elements seen were reported. Hepatic Function Panel * Reviewed date:07/01/2024 11:43:57 AM Interpretation: Performing Lab:1, [facility], [address] [place] [address], [phone] Jenn Grajeda M.D. Notes/Report: NON-FASTING; NON-FASTING; NON-FASTING; NON-FASTING; NON-FAST FASTING:YES FASTING: YES PROTEIN, TOTAL 6.6 6.1-8.1 g/dL ALBUMIN 3.7 3.6-5.1 g/dL GLOBULIN 2.9 1.9-3.7 g/dL (calc) ALBUMIN/GLOBULIN RATIO 1.3 1.0-2.5 (calc) BILIRUBIN, TOTAL 0.3 0.2-1.2 mg/dL BILIRUBIN, DIRECT 0.1 < OR = 0.2 mg/dL BILIRUBIN, INDIRECT 0.2 0.2-1.2 mg/dL (calc) ALKALINE PHOSPHATASE 81 37-153 U/L AST 12 10-35 U/L ALT 11 6-29 U/L SODIUM WITH CREATININE, RAND OM URINE Reviewed date:07/01/2024 11:43:57 AM Interpretation: Performing Lab:[facility], [facility], [address] [place] [address], [phone] Jenn Grajeda M.D. Notes/Report: NON-FASTING; NON-FASTING; NON-FASTING; NON-FASTING; NON-FAST FASTING:YES FASTING: YES SODIUM/CREAT RATIO 44 28-280 mmol/g creat SODIUM, RANDOM URINE 98 28-272 mmol/L CREATININE, RANDOM URINE 222 20-275 mg/dL CBC (INCLUDES DIFF/PLT) Reviewed date:07/01/2024 11:43:57 AM Interpretation: Performing Lab:[facility], [facility], [address] [place] [address], [phone] Jenn Grajeda M.D. Notes/Report: NON-FASTING; NON-FASTING; NON-FASTING; NON-FASTING; NON-FAST FASTING:YES FASTING: YES WHITE BLOOD CELL COUNT 10.7 3.8-10.8 Thousand/ uL RED BLOOD CELL COUNT 5.12 3.80-5.10 Million/uL HEMOGLOBIN 12.0 11.7-15.5 g/dL HEMATOCRIT 41.3 35.0-45.0 % MCV 80.7 80.0-100.0 fL MCH 23.4 27.0-33.0 pg MCHC 29.1 32.0-36.0 g/dL For adults, a slight decrease in the calculated MCHC value (in the range of 30 to 32 g/dL) is most likely not clinically significant; however, it should be interpreted with caution in correlation with other red cell parameters and the patient's clinical condition. RDW 15.5 11.0-15.0 % PLATELET COUNT 372 140-400 Thousand/uL MPV 11.0 7.5-12.5 fL ABSOLUTE NEUTROPHILS 8400 8617-1540 cells/uL ABSOLUTE LYMPHOCYTES 7101 233-5996 cells/uL ABSOLUTE MONOCYTES 631 200-950 cells/uL ABSOLUTE EOSINOPHILS 353 15-500 cells/uL ABSOLUTE BASOPHILS 54 0-200 cells/uL NEUTROPHILS 78.5 LYMPHOCYTES 11.8 MONOCYTES 5.9 EOSINOPHILS 3.3 BASOPHILS 0.5 Creatine Kinase, TOTAL Reviewed date:07/01/2024 11:43:57 AM Interpretation: Performing Lab:[facility], [facility], [address] [place] [address], [phone] Jenn Grajeda M.D. Notes/Report: NON-FASTING; NON-FASTING; NON-FASTING; NON-FASTING; NON-FAST FASTING:YES FASTING: YES CREATINE KINASE, TOTAL 20 29-143 U/L Basic Metabolic Panel * Reviewed date:07/01/2024 11:43:57 AM Interpretation: Performing Lab:[facility], [facility], [address] [place] [address], [phone] Jenn Grajeda M.D. Notes/Report: NON-FASTING; NON-FASTING; NON-FASTING; NON-FASTING; NON-FAST FASTING:YES FASTING: YES GLUCOSE 154 65-99 mg/dL Fasting reference interval For someone without known diabetes, a glucose value >125 mg/dL indicates that they may have diabetes and this should be confirmed with a follow-up test. UREA NITROGEN (BUN) 15 7-25 mg/dL CREATININE 0.95 0.50-1.05 mg/dL EGFR 68 > OR = 60 mL/min/1.73m2 BUN/CREATININE RATIO SEE NOTE: 6-22 (calc) Not Reported: BUN and Creatinine are within reference range. SODIUM 138 135-146 mmol/L POTASSIUM 4.2 3.5-5.3 mmol/L CHLORIDE 101 98-110 mmol/L CARBON DIOXIDE 27 20-32 mmol/L CALCIUM 10.1 8.6-10.4 mg/dL Hemoglobin A1C with eAG* Reviewed date:10/23/2024 12:01:16 PM Interpretation: Performing Lab:[facility], [employer] [facility] [employer] [facility], [address] [place] [address], [phone] Jenn Grajeda M.D. Notes/Report: NON-FASTING FASTING:YES FASTING: YES HEMOGLOBIN A1c 5.7 <5.7 % of total Hgb For someone without known diabetes, a hemoglobin A1c value between 5.7% and 6.4% is consistent with prediabetes and should be confirmed with a follow-up test. For someone with known diabetes, a value <7% indicates that their diabetes is well controlled. A1c targets should be individualized based on duration of diabetes, age, comorbid conditions, and other considerations. This assay result is consistent with an increased risk of diabetes. Currently, no consensus exists regarding use of hemoglobin A1c for diagnosis of diabetes for children. eAG (mg/dL) 117 eAG (mmol/L) 6.5 Reason For Referral Reason PLEASE CONTACT THE P ATIENT AND SCHEDULE AN APPOINTMENT FOR RECURRENT ACUTE BACTERIAL SINUSITIS/CHRONIC SINUSITIS. HISTORY OF TYPE II DIABETES AND MULTIPILE COMORBIDITIES. PLEASE SEE ATTACHED FILE. THANK YOU. Diagnosis 1 Chronic sinusitis (J 32.9) Referral Organization [facility] an d INTERNAL MEDICINE, [facility] Referring Provider First Name IVAN Referring Provider Last Name John Referring Provider Speciality Internal M edicine Referred Provider GABY MENA General Notes Rik Patel 08/2023 08:52:19 AM >Patient opted not to schedule an appoinment- Berta SIDDIQUI Marbie 05/26/2024 10:10:06 AM >Spoke Kelly, received referral but no appt yet., Linda Enciso 09/23/2024 03:32:01 PM >Pt has not been seen. Referral Priority Routine Reason Please contact patie nt to schedule appointment. re:for toenail clipping Please see attachment below. Thank you Referral Organization [facility] INTERNAL MEDICINE, [facility] Referring Provider First Name [facility] Referring Provider Last Name briannaCARLOS Referring Provider [facility] Referral Priority Routine Reason Please contact patie nt to schedule appointment. re: microalbuminuria,stage 2 CKD Please see attachment below. Thank you Diagnosis 1 Stage 2 chronic kidn ey disease (N18.2) Diagnosis 2 Microalbuminuria (R8 0.9) Referral Organization [facility] INTERNAL MEDICINE, [facility] Referring Provider First Name ROBERTPA Referring Provider Last Name John Referring Provider [facility] General Notes Jada Valerio 02:43:21 PM >resent referral to [facility]. , FAX: [phone] Referral Priority Routine Medications Medication SIG (Take, Route, Frequency, Duration) Notes Start Date End Date Status D3-50 1250 mcg 1 cap(s) orally once a week for 90 day(s) Active clonazePAM 2 mg 1 tab(s) orally twic e a day for 90 days 01/03/2025 Active OneTouch Ultra Test Strip - USE TO TEST TWICE A DAY for 90 days Active OneTouch Ultra Soft Lancet - lancet USE TO TEST TWICE A DAY for 90 days Active pantoprazole 40 mg 1 tab(s) orally once a day for 90 days Active Farxiga 5 mg 1 tab(s) orally once a day for 90 days Active Deep Sea Nasal [place] 0.65% 2 spray(s) intranasally 4 times a day for 30 days Active FLUoxetine 60 mg 1 tab(s) orally once a day (in the morning) for 90 days Active Sulfamethoxazole-Trimeth oprim DS 800 mg-160 mg as directed orally every 12 hours for 10 days 07/14/2024 Active Propranolol Hydrochloride 10 mg 1 tab(s) orally 2 times a day for 90 days Active Metformin Hydrochloride 850 take 1 tablet by mouth twice daily orally twice a day for 90 days Active Ferrex 150 Forte Plus Vitamin B Complex with C, Folic Acid and Iron 1 cap(s) orally once a day for 90 days 10/28/2024 Active ONE TOUCH METER - 1 machine subcutaneo usly twice a day for 30 day Active B12 (Cyanocobalamin) 1000 mcg 1 tab(s) orally once a day for 90 days Active Rybelsus 3 mg 1 tab(s) orally once a day for 90 days Active losartan 50 mg 1 tab(s) orally once a day Active Repatha Prefilled Syringe 140 mg/mL INJECT 1ML UNDER THE SKIN EVERY 2 WEEKS for 28 Active metaxalone 800 mg 1 tablet orally TWIC E NIGHTLY for 90 days Active Doxycycline Hyclate hyclate 100 mg 1 tab(s) orally 2 times a day for 14 days 05/19/2024 Active Alcohol Pads 100CT, 100 ea - 1 topically as directed for injections for 30 day(s) Active fluticasone nasal 50 mcg/inh 1 spray(s) in each nostril once a day for 30 days Active Ozempic 2 mg/3 mL (0.25 mg or 0.5 mg dose) 0.25mg subcutaneously once a week for 30 days 03/24/2024 Not-Taki ng Immunizations Vaccine Route Administration Date Status Comme nts FLU SHOT REG 22-23 IM Intramuscular 07/02/2022 Administere d Social History Tobacco Use: Social History Observation Description Date Details (start date - stop date) Former Smoker NA - NA Smoking Question Answer Notes Are you a: former smoker How long has it been since y ou last smoked? 6-12 months Additional Findings: Tobacco User Modera te cigarette smoker (10-19 cigs/day) AUDIT-C (Standard) Question Answer Notes Did you [...] years x 0.75 ppd = 30 pack years EtOH: no abuse Drugs: none Ex Smoker: 40 years x 0.75 ppd = 30 pack years EtOH: no abuse Drugs: none Ex Smoker: 40 years x 0.75 ppd = 30 pack years EtOH: no abuse Drugs: none Ex Smoker: 40 years x 0.75 ppd = 30 pack years EtOH: no abuse Drugs: none Ex Smoker: 40 years x 0.75 ppd = 30 pack years- stopped tobacco x 20yrs. EtOH: no abuse Drugs: none Lives. 5 children and lives w/ daughter. /. Ex Smoker: 40 years x 0.75 ppd = 30 pack years EtOH: no abuse Drugs: none Ex Smoker: 40 years x 0.75 ppd = 30 pack years EtOH: no abuse Drugs: none Ex Smoker: 40 years x 0.75 ppd = 30 pack years EtOH: no abuse Drugs: none Ex Smoker: 40 years x 0.75 ppd = 30 pack years EtOH: no abuse Drugs: none Ex Smoker: 40 years x 0.75 ppd = 30 pack years EtOH: no abuse Drugs: none Ex Smoker: 40 years x 0.75 ppd = 30 pack years EtOH: no abuse Drugs: none Ex Smoker: 40 years x 0.75 ppd = 30 pack years EtOH: no abuse Drugs: none Ex Smoker: 40 years x 0.75 ppd = 30 pack years EtOH: no abuse Drugs: none Ex Smoker: 40 years x 0.75 ppd = 30 pack years EtOH: no abuse Drugs: none Ex Smoker: 40 years x 0.75 ppd = 30 pack years EtOH: no abuse Drugs: none Ex Smoker: 40 years x 0.75 ppd = 30 pack years EtOH: no abuse Drugs: none Ex Smoker: 40 years x 0.75 ppd = 30 pack years EtOH: no abuse Drugs: none Ex Smoker: 40 years x 0.75 ppd = 30 pack years EtOH: no abuse Drugs: none Ex Smoker: 40 years x 0.75 ppd = 30 pack years EtOH: no abuse Drugs: none Ex Smoker: 40 years x 0.75 ppd = 30 pack years EtOH: no abuse Drugs: none Ex Smoker: 40 years x 0.75 ppd = 30 pack years EtOH: no abuse Drugs: none Ex Smoker: 40 years x 0.75 ppd = 30 pack years EtOH: no abuse Drugs: none Ex Smoker: 40 years x 0.75 ppd = 30 pack years EtOH: no abuse Drugs: none Ex Smoker: 40 years x 0.75 ppd = 30 pack years EtOH: no abuse Drugs: none Ex Smoker: 40 years x 0.75 ppd = 30 pack years EtOH: no abuse Drugs: none Ex Smoker: 40 years x 0.75 ppd = 30 pack years EtOH: no abuse Drugs: none Problems Problem Type SNOMED Code ICD Code Onset Dates Problem Status W/U Status Risk Notes Problem 26886151 Hypercalcemia (E83.52) Active confirmed Problem 66158175 Other chronic pa in (G89.29) Active confirmed Problem 36377435 Hypertensive hea rt disease without heart failure (I11.9) Active confirmed Problem Sinusitis (77560311) Sinusitis (J32.9) Active c onfirmed Problem 68656209 Essential hypertension (I10) Active confirmed Problem 69244648 Vitamin D defici ency (E55.9) Active confirmed Problem Gastroesophageal reflux disease (022985669) GERD (gastroesophageal reflux disease) (K21.9) Active confirmed Problem Mixed anxiety and depressive disorder (384563207) Anxiety and depression (F41.9) Active confirmed Problem Osteoarthritis (343357387) Osteoarthritis (M19.90) Active confirmed Problem Peripheral vascular disease (106895763) PVD (peripheral vascular disease) (I73.9) Active confirmed Problem Allergic rhinitis (93008398) Allergic rhinitis (J30.9) Active confirmed Problem Hyperparathyroidism (87077113) Hyperparathyroidism (E21.3) Active confirmed Problem 234016746 Hypertriglycerid emia (E78.1) Active confirmed Problem Chronic sinusitis (01872464) Chronic sinusitis (J32.9) Active confirmed Problem Urinary tract infectious disease (47170631) UTI (urinary tract infection) (N39.0) Active confirmed Problem hypercholesterolemia (disorder) (99651657) Hypercholesteremia (E78.00) Active confirmed Problem 3660711 Tachycardia (R00.0) Active confirmed ECG & VS 2021 Problem Vitamin B>12< deficiency anaemia (78897775) Anemia due to vitamin B12 deficiency, unspecified B12 deficiency (D51.9) Active confirmed Problem Refractory migraine (354923822) Headache, migraine, intractable (G43.919) Active confirmed Problem 92555799 Iron deficiency anemia, unspecified iron deficiency anemia type (D50.9) Active confirmed Problem migraine (disorder) (06342252) Migraines (G43.909) Active confirmed Problem 856753809 Panic attack (F41.0) Active confirmed Problem 38593243 Vitamin B defici ency (E53.9) Active confirmed Problem Exposure (135897293) Exposure (T75.89XA) Active confirmed Problem 688455539 Chronic pain dis order (G89.4) Active confirmed Problem 09887436 Hypercholesterem ia (E78.00) Active confirmed Problem 4133569 Ex-smoker (Z87.891) Active confirmed Problem 60023028 JAKI (generalized anxiety disorder) (F41.1) Active confirmed Problem 817871085 Stage 2 chronic kidney disease (N18.2) Active confirmed Problem 230240122 Controlled subst ance agreement signed (Z79.899) Active confirmed Problem 30936565 Restrictive lung disease (J98.4) Active confirmed Problem 32373169 Left anterior hemiblock (I44.4) Active confirmed ECG 2021 Problem 11314437 Left axis deviat ion (R94.31) Active confirmed Problem 107934365 Microalbuminuria (R80.9) Active confirmed Problem 73991923 ADRIÁN (acute kidne y injury) (N17.9) Active confirmed Problem 267907132 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) Active confirmed Problem 55415356 Type 2 diabetes mellitus with hyperglycemia, without long-term current use of insulin (E11.65) Active confirmed Problem 738842710 Gross hematuria (R31.0) Active confirmed Vital Signs Heart Rate 106 /min 01/03/2025 Temperature 97 degrees Fahrenheit 01/03/2025 Respiratory Rate 16 /min 01/03/2025 Blood pressure diastolic 100 mm Hg 01/03/2025 Height 5'8 in 01/03/2025 Blood pressure systolic 150 mm Hg 01/03/2025 Weight 257 lbs 01/03/2025 BMI 39.07 kg/m2 01/03/2025 Encounters Encounter Location Date Provider Diagnosis [facility] and [facility] MED[facility]INE, [address] [address] 03/24/2024 ROMARIO HOPKINS [facility] PR[facility] and INTERNAL MEDICINE, [address] [address] 04/06/2024 IVAN Lopez Type 2 diabetes jayson itus E11.9 ; Diabetic nephropathy associated with type 2 diabetes mellitus E11.21 ; Stage 2 chronic kidney disease N18.2 ; Microalbuminuria R80.9 ; Hypertensive heart disease without heart failure I11.9 ; Essential hypertension I10 ; Iron deficiency anemia, unspecified iron deficiency anemia type D50.9 ; Anemia due to vitamin B12 deficiency, unspecified B12 deficiency D51.9 and Vitamin B deficiency E53.9 [facility] and INTERNAL MEDICINE, [facility] [address] [facility] [address] [place] [address] 07/13/2024 JOSUE MORALES [facility], [address] [address] 01/03/2025 JOSUE MORALES Panic attack F41.0 ; Type 2 diabetes mellitus E11.9 ; Migraine G43.909 ; HLD (hyperlipidemia) E78.5 ; Osteoarthritis M19.90 and Diabetic nephropathy associated with type 2 diabetes mellitus E11.21 [facility], [address] [address] 01/03/2025 JOSUE MORALES [facility], [facility] [address] [facility] [address] [place] [address] 03/22/2024 OSAMA xKANDALAFT Hypercalcemia E83.52 ; Acute sinusitis, unspecified J01.90 ; Type 2 diabetes mellitus E11.9 ; Hypertriglyceridemia without hypercholesterolemia E78.1 ; Iron deficiency anemia, unspecified iron deficiency anemia type D50.9 ; JAKI (generalized anxiety disorder) F41.1 ; Ex-smoker Z87.891 ; Hyperparathyroidism E21.3 ; Vitamin B deficiency E53.9 ; Hypercholesterolemia E78.00 ; Dehydration E86.0 and Controlled substance agreement signed Z79.899 [facility], [facility] [address] [facility] [address] [place] [address] 03/24/2024 OSAMA xKANDALAFT Type 2 diabetes jayson itus E11.9 ; Diabetic nephropathy associated with type 2 diabetes mellitus E11.21 ; Stage 2 chronic kidney disease N18.2 ; Microalbuminuria R80.9 ; Hypertensive heart disease without heart failure I11.9 ; Essential hypertension I10 ; Hypercholesteremia E78.00 ; Hypertriglyceridemia E78.1 ; Iron deficiency anemia, unspecified iron deficiency anemia type D50.9 ; Anemia due to vitamin B12 deficiency, unspecified B12 deficiency D51.9 ; JAKI (generalized anxiety disorder) F41.1 ; Panic attack F41.0 ; Vitamin D deficiency E55.9 ; Vitamin B deficiency E53.9 and Controlled substance agreement signed Z79.899 Formerly [facility] INTERNAL [address] [address] 05/19/2024 OSAMA xKANDALAFT Acute recurrent maxi llary sinusitis J01.01 ; Panic attack F41.0 ; Type 2 diabetes mellitus E11.9 ; Diabetic nephropathy associated with type 2 diabetes mellitus E11.21 ; Stage 2 chronic kidney disease N18.2 ; Microalbuminuria R80.9 ; Hypertensive heart disease without heart failure I11.9 ; Essential hypertension I10 ; Iron deficiency anemia, unspecified iron deficiency anemia type D50.9 ; Anemia due to vitamin B12 deficiency, unspecified B12 deficiency D51.9 and Vitamin B deficiency E53.9 [facility] INTERNAL MEDICINE, [address] [address] 05/25/2024 OSAMA xKANDALAFT Gross hematuria R31. 0 ; ADRIÁN (acute kidney injury) N17.9 ; Microalbuminuria R80.9 ; Stage 2 chronic kidney disease N18.2 ; Hypercholesteremia E78.00 and Chronic sinusitis J32.9 [facility] INTERNAL [facility], [facility] [address] [place] [address] 06/04/2024 KEITH MARIE Microalbuminuria R80 .9 ; Stage 2 chronic kidney disease N18.2 and Hypercholesteremia E78.00 [facility] INTERNAL [facility], [address] [address] 06/07/2024 KEITH MARIE Microalbuminuria R80 .9 ; Stage 2 chronic kidney disease N18.2 ; Hypercholesteremia E78.00 and Abnormal finding on urinalysis R82.90 [facility] INTERNAL MEDICINE, [facility] [address] [place] [address] 07/13/2024 JOSUE MORALES Panic attack F41.0 ; JAKI (generalized anxiety disorder) F41.1 ; Hypercholesteremia E78.00 ; Type 2 diabetes mellitus E11.9 ; Muscle spasm M62.838 ; GERD (gastroesophageal reflux disease) K21.9 ; Cellulitis L03.90 and Encounter for general adult medical examination with abnormal findings Z00.01 [facility] [address] [place] [address] [address] [place] [address] 01/15/2024 OSAMA xCHRISTIANENDJOHANAFT [facility] [address] [place] [address] [address] [place] [address] 01/20/2024 OSAMA xKANDALAFT Muscle spasm M62.838 [facility] [address] [place] [address] [address] [place] [address] 04/05/2024 OSAMA xKANDJOHANAFT [facility] INTERNAL MEDICINE, [facility] [address] [place] [phone] 04/20/2024 [facility], [facility] [address] [place] [phone] 05/17/2024 OSAMA xKANDJOHANAFT [facility] INTERNAL MEDICINE, [facility] [address] [place] [phone] 05/19/2024 OSAMA xKANDJOHANA [facility], [facility] [address] [place] [phone] 05/21/2024 OSAMA xKANDALAFT Hypercholesteremia E 78.00 [facility], [facility] [address] [place] [phone] 05/24/2024 OSAMA xCHRISTIANENDJOHANA [facility], [facility] [address] [place] [phone] 06/02/2024 OSAMA xKANDJOHANA [facility], [facility] [address] [place] [phone] 06/07/2024 KEITH MARIE [facility] PRACTICE INTERNAL MEDICINE, [facility] [address] [place] [phone] 06/07/2024 KEITH MARIE [facility], [facility] [address] [place] [phone] 06/08/2024 OSAMA xKANDALAFT [facility] [address] [facility] [address] [place] [address] 06/09/2024 OSAMA xKANDALAFT [facility] [address] [facility] [address] [place] [address] 06/10/2024 OSAMA xKANDJOHANAFT [facility] [address] [facility] [address] [place] [address] 06/14/2024 KEITH MARIE [facility] [address] [facility] [address] [place] [address] 06/14/2024 OSAMA xCHRISTIANENDJOHANA [facility] [address] [facility] [address] [place] [address] 06/15/2024 OSAMA xKANDALAFT [facility] [address] [place] [address] [address] [place] [address] 07/12/2024 KEITH MARIE [facility] [address] [facility] [address] [place] [address] 07/13/2024 JOSUE MORALES [facility] [address] [place] [address] [address] [place] [address] 07/14/2024 OSAPA Duyen [facility] [address] [facility] [address] [place] [address] 10/05/2024 JOSUE MORALES [facility] [address] [facility] [address] [place] [address] 10/26/2024 JOSUE MORALES [facility] [address] [facility] [address] [place] [address] 10/31/2024 JOSUE MORALES [facility] [address] [facility] [address] [place] [address] 11/02/2024 JOSUE MORALES [facility] [address] [facility] [address] [place] [address] 11/16/2024 SALAS ANDREW Hypertensive heart disease without heart failure I11.9 [facility] INTERNAL MEDICINE, [facility] [employer] [facility] [address] [facility] [address] [place] [address] 11/17/2024 SALAS ANDREW Hypercholesteremia E 78.00 [facility] and INTERNAL MEDICINE, [facility] [employer] [address] [facility] [address] [place] [address] 11/24/2024 JOSUE MORALES B12 deficiency E53.8 [facility] and [facility]IC[facility], [facility] [employer] [address] [facility] [address] [place] [address] 12/28/2024 SALAS ANDREW Muscle spasm M62.838 Assessments Encounter Date Diagnosis (ICD Code) Assessment Notes Treatment Notes Treatment Clinical Notes Section Notes 01/20/2024 Muscle spasm (ICD-10 - M62.838) 03/22/2024 Hypercalcemia (ICD-10 - E83.52) Hypercalcemia and Hyperparathyroidism US neck negative for parathyroid or thyroid lesions of concern PLAN- Refer to an numerical control lathe operator for further evaluation- Order neck ultrasound to thyroid & parathyroid in 1 year 03/22/2024 Acute sinusitis, unspecified (ICD-10 - J01.90) Acute bacterial sinusitis:Assessment :Patient presents with symptoms consistent with sinus infection, including runny nose, tearing eyes, headache, and intermittent fevers and chills. No phlegm, cough, or shortness of breath reported.PLAN:- Prescribe doxycycline 100 mg BID PO for 10 days, as the patient has a penicillin allergy- Educate the patient on the importance of completing the full course of antibiotics- Schedule a follow-up appointment to assess the resolution of symptoms 03/24/2024 Type 2 diabetes mellitus (ICD-10 - E11.9) Type 2 Diabetes Mellitus A1C 6.3% (falsely low due to anemia) POC glucose 150mg/dl fasting PLAN: - Continue metformin 850mg BID PO - Start semaglutide (Ozempic) 0.25 mg injection once weekly - Start Farxiga 5mg OD PO - Monitor blood glucose levels and adjust medications as needed- Encourage weight loss and regular exercise - Blood work in 3 months _ __ __ __ __ __ __ __ __ __ __ __ __ __ __ __ __ __ _ CARE MANAGEMENT & SUPPORT PLAN Diabetes Mellitus Type II - A1c now 6.3 % ( 6.0%) - POC glucose 150 mg/dl - Proteinuria present - No Glucosuria present HTN: at goal HLD: not at goal _ __ __ __ __ __ __ __ __ __ __ __ __ __ __ __ __ __ _ MEDICATIONS Compliant - Metformin 850mg BID PO _ __ __ __ __ __ __ __ __ __ __ __ __ __ __ __ __ __ _ SYSTEMS & PROBLEM LIST - Cardiac: ASCVD high - Statin therapy - Hepatic: ALAN - Neurological: No issues - Peripheral Arterial: PAD/ PVD - Peripheral Nervous: Peripheral neuropathy - Renal: CKD / proteinuria - Respiratory: No issues _ __ __ __ __ __ __ __ __ __ __ __ __ __ __ __ __ __ _ SPECIALISTS & REFERRALS - Ophthalmology: yearly - Podiatry: none following - Dental : yearly following - Endocrine : none following - Cardiology : none following - Nephrology : none following _ __ __ __ __ __ __ __ __ __ __ __ __ __ __ __ __ __ _ GOALS - A1C <7% - Prevent progression of CKD - Prevent development of diabetic nephropathy - Reduce proteinuira - Prevent development and reduce progression of peripheral ulcerations - Prevent development progression of neuropathy - Compliance with medications - Compliance with dietary recommendations - Compliance with exercise recommendations _ __ __ __ __ __ __ __ __ __ __ __ __ __ __ __ __ __ _ BARRIERS - Financial insecurity - Transportation insecurity - Complex medical illnesses - Complex medication regimen - Lack of ancillary and home supports - Lack of desired compliance with dietary recommendations - Lack of desired compliance with exercise recommendations _ __ __ __ __ __ __ __ __ __ __ __ __ __ __ __ __ __ _ COUNSELLING & RESOURCES We reviewed the importance of healthy diet and regular exercise in optimizing health and limiting the development/prog ression of related disease states such as DM/HTN/HLD. We discussed strategies to improve dietary compliance by the reduction of carbohydrates and red meat (and switch to white meat), doubling vegetable intake & fruit intake and the reduction of daily portions. This was reviewed for a total of 15 mins separately. We reviewed the importance of regimented exercise in optimizing health and limiting the development/ progression of related disease states such as DM/HTN/HLD. This was reviewed for a total of 15 mins separately, discussing personalised exercise regimens, spending 15min/10min walking or jogging and reviewing habitual & behavioural adjustments. Resources provided to patient in the form of applications to use on smart devices, remote monitoring of blood sugar, recommendations on dietary and exercise information, sheets of the patient's bloodwork, overall plan & follow up. Patient expresses understanding & quesitons clarified and answered. _ __ __ __ __ __ __ __ __ __ __ __ __ __ __ __ __ __ _ FOLLOW UP: - Every 3 months _ __ __ __ __ __ __ __ __ __ __ __ __ __ __ __ __ __ _ 03/24/2024 Diabetic nephropathy associated with type 2 diabetes mellitus (ICD-10 - E11.21) CKD Stage II Microalbuminuria Creatinine baseline 0.8 - stable eGFR: 60-65 - stable UA: 1+ proteinuria Cr:Alb ratio: 30-300 Etiology: Hypertensive & diabetic nephropathy Plan - Start SGLT2i Farxiga 10mg OD PO - No ARB/ENZO at this time - Continue lifestyle modifications - Address other concomitant conditions (HTN, HLD) 04/06/2024 Type 2 diabetes mellitus (ICD-10 - E11.9) Type 2 Diabetes Mellitus A1C 6.3% (falsely low due to anemia) POC glucose 150mg/dl fasting PLAN: - Continue metformin 850mg BID PO - Start semaglutide (Ozempic) 0.25 mg injection once weekly - Start Farxiga 5mg OD PO - Monitor blood glucose levels and adjust medications as needed- Encourage weight loss and regular exercise - Blood work in 3 months _ __ __ __ __ __ __ __ __ __ __ __ __ __ __ __ __ __ _ CARE MANAGEMENT & SUPPORT PLAN Diabetes Mellitus Type II - A1c now 6.3 % ( 6.0%) - POC glucose 150 mg/dl - Proteinuria present - No Glucosuria present HTN: at goal HLD: not at goal _ __ __ __ __ __ __ __ __ __ __ __ __ __ __ __ __ __ _ MEDICATIONS Compliant - Metformin 850mg BID PO _ __ __ __ __ __ __ __ __ __ __ __ __ __ __ __ __ __ _ SYSTEMS & PROBLEM LIST - Cardiac: ASCVD high - Statin therapy - Hepatic: ALAN - Neurological: No issues - Peripheral Arterial: PAD/ PVD - Peripheral Nervous: Peripheral neuropathy - Renal: CKD / proteinuria - Respiratory: No issues _ __ __ __ __ __ __ __ __ __ __ __ __ __ __ __ __ __ _ SPECIALISTS & REFERRALS - Ophthalmology: yearly - Podiatry: none following - Dental : yearly following - Endocrine : none following - Cardiology : none following - Nephrology : none following _ __ __ __ __ __ __ __ __ __ __ __ __ __ __ __ __ __ _ GOALS - A1C <7% - Prevent progression of CKD - Prevent development of diabetic nephropathy - Reduce proteinuira - Prevent development and reduce progression of peripheral ulcerations - Prevent development progression of neuropathy - Compliance with medications - Compliance with dietary recommendations - Compliance with exercise recommendations _ __ __ __ __ __ __ __ __ __ __ __ __ __ __ __ __ __ _ BARRIERS - Financial insecurity - Transportation insecurity - Complex medical illnesses - Complex medication regimen - Lack of ancillary and home supports - Lack of desired compliance with dietary recommendations - Lack of desired compliance with exercise recommendations _ __ __ __ __ __ __ __ __ __ __ __ __ __ __ __ __ __ _ COUNSELLING & RESOURCES We reviewed the importance of healthy diet and regular exercise in optimizing health and limiting the development/prog ression of related disease states such as DM/HTN/HLD. We discussed strategies to improve dietary compliance by the reduction of carbohydrates and red meat (and switch to white meat), doubling vegetable intake & fruit intake and the reduction of daily portions. This was reviewed for a total of 15 mins separately. We reviewed the importance of regimented exercise in optimizing health and limiting the development/ progression of related disease states such as DM/HTN/HLD. This was reviewed for a total of 15 mins separately, discussing personalised exercise regimens, spending 15min/10min walking or jogging and reviewing habitual & behavioural adjustments. Resources provided to patient in the form of applications to use on smart devices, remote monitoring of blood sugar, recommendations on dietary and exercise information, sheets of the patient's bloodwork, overall plan & follow up. Patient expresses understanding & quesitons clarified and answered. _ __ __ __ __ __ __ __ __ __ __ __ __ __ __ __ __ __ _ FOLLOW UP: - Every 3 months _ __ __ __ __ __ __ __ __ __ __ __ __ __ __ __ __ __ _ 05/19/2024 Acute recurrent maxillary sinusitis (ICD-10 - J01.01) Acute recurrent maxillary sinusitis:PLAN:- Refer to ENT specialist for further evaluation and management- Consider CT scan of sinuses to determine the cause of recurrent infections- Prescribe doxycycline as the patient has a penicillin allergy and has previously responded well to this antibiotic 05/19/2024 Panic attack (ICD-10 - F41.0) Panic attacks and anxiety: PLAN:- Continue clonazepam as prescribed- Schedule follow-up appointments via audio-video calls with Dr. Sanchez for ongoing management- After three months, the patient will need to see another physician in the clinic for controlled substance refills 05/21/2024 Hypercholesteremia (ICD-10 - E78.00) 05/25/2024 Gross hematuria (ICD-10 - R31.0) Gross hematuria:Assessment :Patient presents with gross hematuria.PLAN:- Obtain a urine sample to check for bacterial infection and characterize the contents of the urine.- Consider referral to a urologist depending on the results. 05/25/2024 ADRIÁN (acute kidney injury) (ICD-10 - N17.9) Possible acute kidney injury (ADRIÁN):Assessment: Possible acute kidney injury.PLAN:- Obtain blood work to assess kidney function. - Consider referral to a bleach packer depending on the results. 06/04/2024 Microalbuminuria (ICD-10 - R80.9) - Albumin/Creatine ratio: 169 -->433 - Consider referral to nephrology; consult with Dr. Sanchez 06/04/2024 Stage 2 chronic kidney disease (ICD-10 - N18.2) - Consider referral to nephrology; consult with Dr. Sanchez 06/07/2024 Microalbuminuria (ICD-10 - R80.9) - Referral to [facility] Nephrology 06/07/2024 Stage 2 chronic kidney disease (ICD-10 - N18.2) 07/13/2024 Panic attack (ICD-10 - F41.0) 07/13/2024 JAKI (generalized anxiety disorder) (ICD-10 - F41.1) on clonazepam daily for over 20yrs. cont. cont prozac. discussed need for regular tox testing and office visits. part of the agreement. 11/16/2024 Hypertensive heart disease without heart failure (ICD-10 - I11.9) 11/17/2024 Hypercholesteremia (ICD-10 - E78.00) 11/24/2024 B12 deficiency (ICD-10 - E53.8) 12/28/2024 Muscle spasm (ICD-10 - M62.838) 01/03/2025 Panic attack (ICD-10 - F41.0) 01/03/2025 Type 2 diabetes mellitus (ICD-10 - E11.9) 07/13/2024 Hypercholesteremia (ICD-10 - E78.00) 06/07/2024 Hypercholesteremia (ICD-10 - E78.00) - Consulted with Dr. Sanchez regarding alternative to statin due to kidney disease and increased albumin/creatinine ratio - Start Repatha 140 mg/1 mL SQ biweekly - Educated patient of proper SQ administration alternating sites for each injection. 06/04/2024 Hypercholesteremia (ICD-10 - E78.00) - Consult with Dr. Sanchez regarding restarting statin 05/25/2024 Microalbuminuria (ICD-10 - R80.9) History of microalbuminuria:SAILAJA N:- Continue monitoring kidney function and manage accordingly. 05/19/2024 Type 2 diabetes mellitus (ICD-10 - E11.9) Type 2 Diabetes Mellitus A1C 6.3% (falsely low due to anemia) POC glucose 150mg/dl fasting PLAN: - Continue metformin 850mg BID PO - Start semaglutide (Ozempic) 0.25 mg injection once weekly - Start Farxiga 5mg OD PO - Monitor blood glucose levels and adjust medications as needed- Encourage weight loss and regular exercise - Blood work in 3 months _ __ __ __ __ __ __ __ __ __ __ __ __ __ __ __ __ __ _ CARE MANAGEMENT & SUPPORT PLAN Diabetes Mellitus Type II - A1c now 6.3 % ( 6.0%) - POC glucose 150 mg/dl - Proteinuria present - No Glucosuria present HTN: at goal HLD: not at goal _ __ __ __ __ __ __ __ __ __ __ __ __ __ __ __ __ __ _ MEDICATIONS Compliant - Metformin 850mg BID PO _ __ __ __ __ __ __ __ __ __ __ __ __ __ __ __ __ __ _ SYSTEMS & PROBLEM LIST - Cardiac: ASCVD high - Statin therapy - Hepatic: ALAN - Neurological: No issues - Peripheral Arterial: PAD/ PVD - Peripheral Nervous: Peripheral neuropathy - Renal: CKD / proteinuria - Respiratory: No issues _ __ __ __ __ __ __ __ __ __ __ __ __ __ __ __ __ __ _ SPECIALISTS & REFERRALS - Ophthalmology: yearly - Podiatry: none following - Dental : yearly following - Endocrine : none following - Cardiology : none following - Nephrology : none following _ __ __ __ __ __ __ __ __ __ __ __ __ __ __ __ __ __ _ GOALS - A1C <7% - Prevent progression of CKD - Prevent development of diabetic nephropathy - Reduce proteinuira - Prevent development and reduce progression of peripheral ulcerations - Prevent development progression of neuropathy - Compliance with medications - Compliance with dietary recommendations - Compliance with exercise recommendations _ __ __ __ __ __ __ __ __ __ __ __ __ __ __ __ __ __ _ BARRIERS - Financial insecurity - Transportation insecurity - Complex medical illnesses - Complex medication regimen - Lack of ancillary and home supports - Lack of desired compliance with dietary recommendations - Lack of desired compliance with exercise recommendations _ __ __ __ __ __ __ __ __ __ __ __ __ __ __ __ __ __ _ COUNSELLING & RESOURCES We reviewed the importance of healthy diet and regular exercise in optimizing health and limiting the development/prog ression of related disease states such as DM/HTN/HLD. We discussed strategies to improve dietary compliance by the reduction of carbohydrates and red meat (and switch to white meat), doubling vegetable intake & fruit intake and the reduction of daily portions. This was reviewed for a total of 15 mins separately. We reviewed the importance of regimented exercise in optimizing health and limiting the development/ progression of related disease states such as DM/HTN/HLD. This was reviewed for a total of 15 mins separately, discussing personalised exercise regimens, spending 15min/10min walking or jogging and reviewing habitual & behavioural adjustments. Resources provided to patient in the form of applications to use on smart devices, remote monitoring of blood sugar, recommendations on dietary and exercise information, sheets of the patient's bloodwork, overall plan & follow up. Patient expresses understanding & quesitons clarified and answered. _ __ __ __ __ __ __ __ __ __ __ __ __ __ __ __ __ __ _ FOLLOW UP: - Every 3 months _ __ __ __ __ __ __ __ __ __ __ __ __ __ __ __ __ __ _ 04/06/2024 Diabetic nephropathy associated with type 2 diabetes mellitus (ICD-10 - E11.21) CKD Stage II Microalbuminuria Creatinine baseline 0.8 - stable eGFR: 60-65 - stable UA: 1+ proteinuria Cr:Alb ratio: 30-300 Etiology: Hypertensive & diabetic nephropathy Plan - Start SGLT2i Farxiga 10mg OD PO - No ARB/ENZO at this time - Continue lifestyle modifications - Address other concomitant conditions (HTN, HLD) 03/24/2024 Stage 2 chronic kidney disease (ICD-10 - N18.2) CKD Stage II Microalbuminuria Creatinine baseline 0.8 - stable eGFR: 60-65 - stable UA: 1+ proteinuria Cr:Alb ratio: 30-300 Etiology: Hypertensive & diabetic nephropathy Plan - Start SGLT2i Farxiga 10mg OD PO - No ARB/ENZO at this time - Continue lifestyle modifications - Address other concomitant conditions (HTN, HLD) 03/22/2024 Type 2 diabetes mellitus (ICD-10 - E11.9) Type II DM Worsening A1C noted on labs. Patient's medication regimen has been unfornuately complciated for her, and she is unsure of medications taken. RTC in 1-2 weeks for controlled refill, and for management of type II DM after medicaton review 03/22/2024 Hypertriglyceridemia without hypercholesterolemia (ICD-10 - E78.1) 03/24/2024 Microalbuminuria (ICD-10 - R80.9) CKD Stage II Microalbuminuria Creatinine baseline 0.8 - stable eGFR: 60-65 - stable UA: 1+ proteinuria Cr:Alb ratio: 30-300 Etiology: Hypertensive & diabetic nephropathy Plan - Start SGLT2i Farxiga 10mg OD PO - No ARB/ENZO at this time - Continue lifestyle modifications - Address other concomitant conditions (HTN, HLD) 04/06/2024 Stage 2 chronic kidney disease (ICD-10 - N18.2) CKD Stage II Microalbuminuria Creatinine baseline 0.8 - stable eGFR: 60-65 - stable UA: 1+ proteinuria Cr:Alb ratio: 30-300 Etiology: Hypertensive & diabetic nephropathy Plan - Start SGLT2i Farxiga 10mg OD PO - No ARB/ENZO at this time - Continue lifestyle modifications - Address other concomitant conditions (HTN, HLD) 05/19/2024 Diabetic nephropathy associated with type 2 diabetes mellitus (ICD-10 - E11.21) CKD Stage II Microalbuminuria Creatinine baseline 0.8 - stable eGFR: 60-65 - stable UA: 1+ proteinuria Cr:Alb ratio: 30-300 Etiology: Hypertensive & diabetic nephropathy Plan - Start SGLT2i Farxiga 10mg OD PO - No ARB/ENZO at this time - Continue lifestyle modifications - Address other concomitant conditions (HTN, HLD) 05/25/2024 Stage 2 chronic kidney disease (ICD-10 - N18.2) Stage 2 CKD secondary to diabetic nephropathy: PLAN:- Monitor kidney function and manage diabetes to prevent further progression of CKD. 06/07/2024 Abnormal finding on urinalysis (ICD-10 - R82.90) 07/13/2024 Type 2 diabetes mellitus (ICD-10 - E11.9) 01/03/2025 Migraine (ICD-10 - G43.909) 01/03/2025 HLD (hyperlipidemia) (ICD-10 - E78.5) 07/13/2024 Muscle spasm (ICD-10 - M62.838) 05/19/2024 Stage 2 chronic kidney disease (ICD-10 - N18.2) CKD Stage II Microalbuminuria Creatinine baseline 0.8 - stable eGFR: 60-65 - stable UA: 1+ proteinuria Cr:Alb ratio: 30-300 Etiology: Hypertensive & diabetic nephropathy Plan - Start SGLT2i Farxiga 10mg OD PO - No ARB/ENZO at this time - Continue lifestyle modifications - Address other concomitant conditions (HTN, HLD) 05/25/2024 Hypercholesteremia (ICD-10 - E78.00) Hypercholesterolemia :PLAN:- Temporarily discontinue atorvastatin to rule out rhabdomyolysis.- Reevaluate the need for statin therapy once the cause of hematuria is determined. 04/06/2024 Microalbuminuria (ICD-10 - R80.9) CKD Stage II Microalbuminuria Creatinine baseline 0.8 - stable eGFR: 60-65 - stable UA: 1+ proteinuria Cr:Alb ratio: 30-300 Etiology: Hypertensive & diabetic nephropathy Plan - Start SGLT2i Farxiga 10mg OD PO - No ARB/ENZO at this time - Continue lifestyle modifications - Address other concomitant conditions (HTN, HLD) 03/24/2024 Hypertensive heart disease without heart failure (ICD-10 - I11.9) Hypertensive Heart Disease and Essential HypertensionPLAN:- Continue current antihypertensive medications- Monitor blood pressure regularly- Encourage lifestyle modifications (weight loss, exercise, low-sodium diet) - Farxiga 5mg OD PO started - Continue propranolol 10mg BID PO 03/22/2024 Iron deficiency anemia, unspecified iron deficiency anemia type (ICD-10 - D50.9) The patient was advised to take iron supplementation. Etiology: undetermined - pending EGD & Colonoscopy Advised of potential side effects of constipation, dark coloured stools, nausea/vomiting/GERD if taken in the morning due to acidity. Advised to increase intake of water & fiber, as well as ideally taking tablet in the morning 30 mins before meals, but if intolerable, to take the medication midday to avert symptoms listed above. 03/24/2024 Essential hypertension (ICD-10 - I10) Well controlled, stable condition - Greater than 20% of > 30 minutes office visit spent [id number] educating patient regarding diagnoses of hypertension We discussed its etiology and risks a/w elevated BP levels. We discussed importance of being adherant to pharmacologic therapy as well as management strategies for maintaining healthy BP levels including DASH diet low in NA+ and regular exercise. No changes to current pharmacohogic regime. Will continue to monitor at future office visits. PLAN - Continue GDMT as prescribed - Continue current antihypertensive medications. - Monitor blood pressure during follow-up appointments. - Encourage lifestyle modifications, such as a low-sodium diet, regular exercise, and stress management. 03/22/2024 JAKI (generalized anxiety disorder) (ICD-10 - F41.1) History and physical, including normal blood work and negative organic pathology is consistent with mixed anxiety/ depressive disorder. Denies suicidal or homicidal ideation or intent; feels safe at home work. The patient does not represent a threat to themself or others based on this visit's evaluation. Discussed options including behavioral therapy, stress reduction, pharmacologic therapy. Labs checked and no organic pathology noted Discussed risks/benefits/SEs of medications and natural supplements in detail Currently on benzodiazepine therapy. Pt is aware of and expresses understanding of risks including drug interactions, risk of abuse/tolerance/with drawal, drowsiness, and increased risk of Alzheimers w/ long-term use and would still like to proceed w/ therapy. Advised that it is our policy to have closer f/u for refills of pts on controlled substances to which pt is agreeable. Encouraged to optimize lifestyle factors including reduction of external stressors, healthy diet/exercise, adequate sleep. 04/06/2024 Hypertensive heart disease without heart failure (ICD-10 - I11.9) Hypertensive Heart Disease and Essential HypertensionPLAN:- Continue current antihypertensive medications- Monitor blood pressure regularly- Encourage lifestyle modifications (weight loss, exercise, low-sodium diet) - Farxiga 5mg OD PO started - Continue propranolol 10mg BID PO 05/25/2024 Chronic sinusitis (ICD-10 - J32.9) Chronic sinusitis:Assessment :Patient self-discontinued doxycycline.PLAN: - Monitor for any worsening of symptoms and consider reinitiating antibiotic therapy if needed. 05/19/2024 Microalbuminuria (ICD-10 - R80.9) CKD Stage II Microalbuminuria Creatinine baseline 0.8 - stable eGFR: 60-65 - stable UA: 1+ proteinuria Cr:Alb ratio: 30-300 Etiology: Hypertensive & diabetic nephropathy Plan - Start SGLT2i Farxiga 10mg OD PO - No ARB/ENZO at this time - Continue lifestyle modifications - Address other concomitant conditions (HTN, HLD) 07/13/2024 GERD (gastroesophageal reflux disease) (ICD-10 - K21.9) 01/03/2025 Osteoarthritis (ICD-10 - M19.90) 01/03/2025 Diabetic nephropathy associated with type 2 diabetes mellitus (ICD-10 - E11.21) 07/13/2024 Cellulitis (ICD-10 - L03.90) 05/19/2024 Hypertensive heart disease without heart failure (ICD-10 - I11.9) Hypertensive Heart Disease and Essential HypertensionPLAN:- Continue current antihypertensive medications- Monitor blood pressure regularly- Encourage lifestyle modifications (weight loss, exercise, low-sodium diet) - Farxiga 5mg OD PO started - Continue propranolol 10mg BID PO 04/06/2024 Essential hypertension (ICD-10 - I10) Well controlled, stable condition - Greater than 20% of > 30 minutes office visit spent [id number] educating patient regarding diagnoses of hypertension We discussed its etiology and risks a/w elevated BP levels. We discussed importance of being adherant to pharmacologic therapy as well as management strategies for maintaining healthy BP levels including DASH diet low in NA+ and regular exercise. No changes to current pharmacohogic regime. Will continue to monitor at future office visits. PLAN - Continue GDMT as prescribed - Continue current antihypertensive medications. - Monitor blood pressure during follow-up appointments. - Encourage lifestyle modifications, such as a low-sodium diet, regular exercise, and stress management. 03/24/2024 Hypercholesteremia (ICD-10 - E78.00) Hypercholesterolemia and Hypertriglyceridemia Current condition: Unstable. Discussed with pt the etiology and risks associated with uncontrolled elevated cholesterol levels. Management strategies to improve cholesterol such as sticking to a low fat, low sodium or DASH diet and implementing a regular exercise regime was discussed. NORMAL LIPID PANEL - ELEVATED Lp(a), LDL-C, APO-B Has increased risk PLAN: - Increase atorvastatin to 40 mg daily- Monitor lipid panel and adjust medications as needed 03/22/2024 Ex-smoker (ICD-10 - Z87.891) No increased risk factors identified on history or physical examination based on smoking history of 25 pack years. Plan - Spirometry & PEF to be performed - US AAA at 66 - Screening with LDCT considered 03/22/2024 Hyperparathyroidism (ICD-10 - E21.3) Hypercalcemia and Hyperparathyroidism US neck negative for parathyroid or thyroid lesions of concern PLAN- Refer to an numerical control lathe operator for further evaluation- Order neck ultrasound to thyroid & parathyroid in 1 year 03/24/2024 Hypertriglyceridemia (ICD-10 - E78.1) Hypercholesterolemia and Hypertriglyceridemia Current condition: Unstable. Discussed with pt the etiology and risks associated with uncontrolled elevated cholesterol levels. Management strategies to improve cholesterol such as sticking to a low fat, low sodium or DASH diet and implementing a regular exercise regime was discussed. NORMAL LIPID PANEL - ELEVATED Lp(a), LDL-C, APO-B Has increased risk PLAN: - Increase atorvastatin to 40 mg daily- Monitor lipid panel and adjust medications as needed 04/06/2024 Iron deficiency anemia, unspecified iron deficiency anemia type (ICD-10 - D50.9) Chronic Anemia (Iron Deficiency and Vitamin B12 Deficiency)PLAN: - Continue iron supplementation- Stop B12 vitamins and start B-complex supplementation- Referral to gastroenterology for further evaluation 05/19/2024 Essential hypertension (ICD-10 - I10) Well controlled, stable condition - Greater than 20% of > 30 minutes office visit spent [id number] educating patient regarding diagnoses of hypertension We discussed its etiology and risks a/w elevated BP levels. We discussed importance of being adherant to pharmacologic therapy as well as management strategies for maintaining healthy BP levels including DASH diet low in NA+ and regular exercise. No changes to current pharmacohogic regime. Will continue to monitor at future office visits. PLAN - Continue GDMT as prescribed - Continue current antihypertensive medications. - Monitor blood pressure during follow-up appointments. - Encourage lifestyle modifications, such as a low-sodium diet, regular exercise, and stress management. 05/19/2024 Iron deficiency anemia, unspecified iron deficiency anemia type (ICD-10 - D50.9) Chronic Anemia (Iron Deficiency and Vitamin B12 Deficiency)PLAN: - Continue iron supplementation- Stop B12 vitamins and start B-complex supplementation- Referral to gastroenterology for further evaluation 07/13/2024 Encounter for general adult medical examination with abnormal findings (ICD-10 - Z00.01) 04/06/2024 Anemia due to vitamin B12 deficiency, unspecified B12 deficiency (ICD-10 - D51.9) Chronic Anemia (Iron Deficiency and Vitamin B12 Deficiency)PLAN: - Continue iron supplementation- Stop B12 vitamins and start B-complex supplementation- Referral to gastroenterology for further evaluation 03/24/2024 Iron deficiency anemia, unspecified iron deficiency anemia type (ICD-10 - D50.9) Chronic Anemia (Iron Deficiency and Vitamin B12 Deficiency)PLAN: - Continue iron supplementation- Stop B12 vitamins and start B-complex supplementation- Referral to gastroenterology for further evaluation 03/22/2024 Vitamin B deficiency (ICD-10 - E53.9) The patient has a vitamin B12 deficiency based on lab results Pt instructed to continue taking B-complex supplements, OD PO, will continue to monitor. Encourage the patient to increase consumption of foods rich in B Vitamins. 03/22/2024 Hypercholesterolemia (ICD-10 - E78.00) Hypercholesterolemia PLAN- Discuss cholesterol levels at follow-up in two weeks- Encourage a heart-healthy diet- Consider treatment plan adjustments if necessary 03/24/2024 Anemia due to vitamin B12 deficiency, unspecified B12 deficiency (ICD-10 - D51.9) Chronic Anemia (Iron Deficiency and Vitamin B12 Deficiency)PLAN: - Continue iron supplementation- Stop B12 vitamins and start B-complex supplementation- Referral to gastroenterology for further evaluation 04/06/2024 Vitamin B deficiency (ICD-10 - E53.9) Vitamin B Deficiency The patient has a vitamin B12 deficiency based on lab results PLAN - Pt instructed to take B-Complex supplements (1-2 tabs/day) - Will continue to monitor. - Encourage the patient to increase consumption of foods rich in B Vitamins. 05/19/2024 Anemia due to vitamin B12 deficiency, unspecified B12 deficiency (ICD-10 - D51.9) Chronic Anemia (Iron Deficiency and Vitamin B12 Deficiency)PLAN: - Continue iron supplementation- Stop B12 vitamins and start B-complex supplementation- Referral to gastroenterology for further evaluation 05/19/2024 Vitamin B deficiency (ICD-10 - E53.9) Vitamin B Deficiency The patient has a vitamin B12 deficiency based on lab results PLAN - Pt instructed to take B-Complex supplements (1-2 tabs/day) - Will continue to monitor. - Encourage the patient to increase consumption of foods rich in B Vitamins. 03/24/2024 JAKI (generalized anxiety disorder) (ICD-10 - F41.1) Depression/anxiety screen completed and reviewed. Pt has no complaints at this time, feels safe and home and has strong support system. Encouraged to maintain support system and optimize sleep, reduce external stressors and increase regular exercise. Will continue to monitor at wellness visits. 03/22/2024 Dehydration (ICD-10 - E86.0) Dehydrated with poor PO intake of water daily. The patient was advised to increase PO intake of free water to assist with complaints. Superimposed increased diuresis due to medications 03/24/2024 Panic attack (ICD-10 - F41.0) Panic Attack and Controlled Substance RefillPLAN:- Refill current medications as appropriate- Consider referral to mental health professional for further evaluation and management- Encourage stress reduction techniques and lifestyle modifications 03/22/2024 Controlled substance agreement signed (ICD-10 - Z79.899) Signed: 08/2023 Medication: Clonazepam Dose: 1mg Started: 2020 Indication: Panic attacks Goals: improve ADLs and reduce exacerbations Duration of Therapy: 3-6 months U-Tox: performed today PDMP: Reviewed Violations: No Next Visit: 7-10 days Refills: sent today, x10 days ONLY - Guidelines reviewed with patient, and must present every 3 months for OV refill BARRIERS - Financial insecurity - Transportation insecurity - Complex medical issues - Complex medication regimen - Lack of ancillary and home supports - Underlying mood disorder 03/24/2024 Vitamin D deficiency (ICD-10 - E55.9) The patient has a vitamin D deficiency based on lab results. Pt instructed to start taking Vit D3 supplements, at least 2000 IU/day, will continue to monitor. Encourage the patient to increase sun exposure and consume foods rich in vitamin D. 03/24/2024 Vitamin B deficiency (ICD-10 - E53.9) Vitamin B Deficiency The patient has a vitamin B12 deficiency based on lab results PLAN - Pt instructed to take B-Complex supplements (1-2 tabs/day) - Will continue to monitor. - Encourage the patient to increase consumption of foods rich in B Vitamins. 03/24/2024 Controlled substance agreement signed (ICD-10 - Z79.899) Signed: 06/2023 Medication: Clonazepam Dose: 2mg , BID Started: 2020 Indication: panic attacks U-Tox: Performed today PDMP: Reviewed Next Visit: 3 months: OV: CSA UTox Refills: 90 days supplied today BARRIERS - Financial insecurity - Transportation insecurity - Complex medical issues - Complex medication regimen - Lack of ancillary and home supports - Prior violation - Underlying mood disorder 07/02/2024 Other A total of over 20 minutes was spent on this visit reviewing previous notes, consults, labs and tests, counseling the patient on acute and/or chronic conditions, ordering tests, refilling meds, and documenting the findings in the electronic record. - - - - - - - - - - - - - - - - - - - - - - - - - - - - - - - - - - - - - - - - - - - - - - - Greater than 15 minutes of office visit was spent [id number] educating the patient regarding diagnoses, disease etiology, treatment options with risk/benefits. We also reviewed sequelae of poor or not optimal management. We discussed the importance of consistent f/u w/ specialists and routine screening in detecting and treating disease early. 07/12/2024 Other Greater than 15 minutes of office visit was spent [id number] reviewing treatment options with risk/benefits. Checking if pt is doing well on meds. Refill e-scribed and will refill meds for the next months. 03/22/2024 Other A total of over 30 minutes was spent on this visit reviewing previous notes, consults, labs and tests, counseling the patient on acute and/or chronic conditions, ordering tests, refilling meds, and documenting the findings in the electronic record. 03/24/2024 Other A total of over 40 minutes was spent on this visit reviewing previous notes, consults, labs and tests, counseling the patient on acute and/or chronic conditions, ordering tests, refilling meds, and documenting the findings in the electronic record. ------- During this visit, by addressing the broad scope of this patient's health needs and furnishing care for some or all the patient's conditions across a spectrum of diagnoses and organ systems with consistency and continuity over time, the provider has served as the focal point for this patient's care. 05/19/2024 Other A total of over 30 minutes was spent on this visit reviewing previous notes, consults, labs and tests, counseling the patient on acute and/or chronic conditions, ordering tests, refilling meds, and documenting the findings in the electronic record. Medication refills:PLAN: - Inform the patient that refills for other medications are already available and were sent in March- Advise the patient to call the pharmacy seven days before running out of medications to confirm refills- If any issues arise, instruct the patient to contact the clinic for assistance 05/25/2024 Other A total of over 30 minutes was spent on this visit reviewing previous notes, consults, labs and tests, counseling the patient on acute and/or chronic conditions, ordering tests, refilling meds, and documenting the findings in the electronic record. 06/04/2024 Other 06/30/2024 Other Greater than 25 minutes of AV visit was spent educating the patient regarding diagnoses, disease etiology, treatment options with risk/benefits. We also reviewed sequelae of poor or not optimal management. We discussed the importance of consistent f/u w/ specialists and routine screening in detecting and treating disease early. Plan Of Treatment Pending Test Test Name Order Date Mammogram (Screening) Bilateral 12/04/19 23 Mammogram (Screening) Bilateral 12/24/19 24 Future Test Test Name Order Date CPE FEMALE >40 (Fasting Basi c Metabolic, Lipid Panel, Hepatic Function Panel, CBC w/diff., TSH, urinalysis) 09/25/2024 Next Appt Details Provider Name:SALAS RAMJOSS [place], 02/08/2025 02:30:00 PM, [address] [facility], [address], [place], [address], Provider Name:JOSUE MCBRIDEJOSS [place], 02/21/2025 09:00:00 AM, [address] [place] [address], [phone], Insurance Providers Payer Name Payer Address Payer Phone Subscriber Number Group Number Insured Name Patient Relationship to Insured Coverage Start Date Coverage End Date [place] [address] [place] [address] [phone] [id number] RODERICK LEONARD Self - patient is the insured Medical (General) History Medical History History ICD Code Osteoarthritis M19.90 Sinusitis J32.9 Migraines G43.909 Chronic pain disorder G89.4 Chronic sinusitis J32.9 DM2/nephropathy CKD2/anemia COPD/past tobacco Anemia/vitB12/iron def Hypercholesteremia E78.00 Vitamin D deficiency E55.9 UTI (urinary tract infection) N39.0 Tachycardia R00.0 Restrictive lung disease J98.4 PVD (peripheral vascular disease) I73.9 Panic attack F41.0 Other chronic pain G89.29 Left axis deviation R94.31 Left anterior hemiblock I44.4 Iron deficiency anemia, unspecified iron deficiency anemia type D50.9 Hypertensive heart disease without heart failure I11.9 Headache, migraine, intractable G43.919 GERD (gastroesophageal reflux disease) K 21.9 Exposure T75.89XA Ex-smoker Z87.891 Essential hypertension I10 Controlled substance agreement signed Z7 9.899 Anxiety and depression F41.9 Anemia due to vitamin B12 deficiency, un specified B12 deficiency D51.9 Allergic rhinitis J30.9 Hypercalcemia E83.52 Type 2 diabetes mellitus wit h hyperglycemia, without long-term current use of insulin E11.65 Diabetic nephropathy associated with typ e 2 diabetes mellitus E11.21 Hyperparathyroidism E21.3 JAKI (generalized anxiety disorder) F41.1 Stage 2 chronic kidney disease N18.2 Microalbuminuria R80.9 Vitamin B deficiency E53.9 Hypertriglyceridemia E78.1 Gross hematuria R31.0 ADRIÁN (acute kidney injury) N17.9 Surgical History Surgery Date(Month/Year) MAJOR BACK SURGERY 06/11 Hospitalization History Reason Date(Month/Year) MAJOR BACK SURGERY 05/2018 Osteoarthritis of right kneww 05/20/2019
--- OUTSIDE RECORDS SUMMARY | 2025-01-05 15:43 | XMS_ITS ---
Author Name [facility] Organization Unknown History of Medication Use Medication Directions Dispensed Refills Start Date End Date [facility] Sulfamethoxazole-Tri methoprim DS 800 mg-160 mg Sulfamethoxazole-T rimethoprim DS 800 mg-160 mg 07/14/2024 active Atorvastatin Calcium 40 mg Atorvastatin Calcium 40 mg 03/24/2024 active clonazePAM 2 mg clonazePAM 2 mg 03/24/2024 active Farxiga 5 mg Farxiga 5 mg 03/24/2024 act vern Doxycycline Hyclate hyclate 100 mg Doxycycline Hyclate hyclate 100 mg 03/22/2024 active traMADol (ULTRAM) 50 MG tablet Take 2 tablets (100 mg total) by mouth nightly as needed for severe pain. 01/21/2024 5 active FLUoxetine (PROzac) 60 MG Tab 12/14/2023 active atorvastatin (LIPITOR) 10 MG tablet Take 10 mg by mouth daily. 11/24/2023 active cyanocobalamin (VITAMIN B-12) 1000 MCG extended release tablet Take 1,000 mcg by mouth daily. 10/10/2023 active fluticasone (FloNASE) 50 mcg/spray nasal spray SPRAY 1 SPRAY INTO EACH NOSTRIL ONCE A DAY 10/10/2023 active tramadol 50 mg tablet take 2 tablets by oral route once a day (at bedtime) for 28 days 12/25/2021 4 completed metaxalone 800 mg oral tablet TAKE ONE TABLET BY MOUTH 3 TIMES DAILY NEEDED for 30 days 07/22/2017 0 completed tramadol 50 mg oral tablet 01/16/2017 7 completed clonazepam 2 mg oral tablet 01/04/2017 completed fluoxetine 20 mg oral capsule 01/02/2017 8 completed atorvastatin 10 mg oral tablet 01/02/2017 completed pantoprazole 40 mg oral tablet,delayed release (DR/EC) 12/30/2016 completed B12 (Cyanocobalamin) 1000 mcg B12 (Cyanocobalamin) 1000 mcg active Ferrex 150 Forte Plus Vitamin B Complex with C, Folic Acid and Iron Ferrex 150 Forte Plus Vitamin B Complex with C, Folic Acid and Iron active FLUoxetine 60 mg FLUoxetine 60 mg active Metformin Hydrochloride 850 Metformin Hydrochloride 850 active pantoprazole 40 mg pantoprazole 40 mg active Problems Problem Status Onset Date Problem Type Date of Resolution Source ADRIÁN (acute kidney injury) active ProblemAct [facility] Microalbuminuria active ProblemAct EN S_FPIMCT Gross hematuria active ProblemAct ENS _FPIMCT Diabetic nephropathy associated with type 2 diabetes mellitus active ProblemAct E[facility] Type 2 diabetes mellitus with hyperglycemia, without long-term current use of insulin active ProblemAct ENS[facility]FPIMCT Primary osteoarthritis of left knee active [facility] pain of both knees active 2016-12-17 ProblemAct ENS_ORTHOC T DDD (degenerative disc disease), lumbar active 2017-03-26 ProblemAct [facility]TH[facility] T History of right knee joint replacement active 2019-06-08 ProblemAct [facility] T Aftercare following right knee joint replacement surgery active 2019-06-08 ProblemAct ENS_ORTH OC T Lumbar Spinal Stenosis active 2017-03-26 ProblemAct [facility] T Lumbar stenosis with neurogenic claudication active 2017-10-28 ProblemAct [facility] T Primary osteoarthritis of left knee active 2023-03-04 ProblemAct E[facility]TH[facility] T Spondylolisthesis at L4-L5 level active 2017-03-26 ProblemAct E[facility]ORTH[facility] T Immunizations Vaccine Date Source Lot Number Status FLU SHOT REG 22-23 07/02/2022 [facility] [id number] comple marlo Influenza, Quadrivalent (FLU ARIX, AFLURIA, FLULAVAL, FLUZONE) Preservative Free IM 07/02/2022 [facility] [id number] completed Encounters Encounter Type Encounter Reason Primary Diagnosis Location Date Ambulatory [facility] condenser [facility] 07/13/2024 Ambulatory [facility], [facility] condenser operator [facility] 06/07/2024 Ambulatory [facility], [facility] 06/04/2024 Ambulatory [facility], [facility] condenser operator [facility] 05/25/2024 [facility]ulatory [facility] condens[facility] 05/19/2024 Ambulatory [facility], [facility] condenser operator [facility] 04/06/2024 [facility]ulatory [facility] condenser operator [facility] 03/24/2024 Ambulatory Hyperparathyroidism, unspecified Hyperparathyroidism, unspecified [place] 12/18/2023 Ambulatory [place] [facility] 12/15/2023 Ambulatory L [facility] 05/07 [facility] 04/29/2023 Ambulatory [facility] 03/04/2023 Care Team Organization Name Specialty Phone Email Start Date End Da te [facility] provided,No Primary Care 06/11/2024 [facility], [facility] condenser operator [facility] Primary Care 03/26/2024 [facility] Primary Care 03/24/2024 [place] [facility] 12/23/2023 [facility] Primary Care 12/16/2023 11/10/2024 [facility] 2023 024 [facility] 03/04/2023 [facility] 01/27/20232022 [facility] 01/25/2023 [facility] No provided Primary Care 09/27/2022 023 [facility] provided No Primary Care 09/13/2022 [facility] 08/29/2022 [facility] 06/26/2022 [facility] 05/25/2021 [facility] 05/07/2021 04/12/2024 [facility]
--- OUTSIDE RECORDS SUMMARY | 2025-01-05 15:43 | XMS_ITS | Encounter Summary ---
Author Organization [facility] Address [address] [place] [address] Care Team Providers Care Greenhouse Staff Name Role Phone Linnea Leach APRN Primary Care Provider [phone] Encounter Details Date Type Department Care Team (Late st Contact Info) Description 12/10/2023 Scanned Document [facility] SCHEDULING [address] [place] [address] Rocio Sanchez MD [address] [place] [phone] Social History Tobacco Use Types Packs/Day [...] Date/Time Associated Diagnosis Comments LAB SCAN Routine 11/26/2023 11:32 AM EDT documented in this encounter Results * Lab Scan (11/26/2023 11:32 AM EDT) Rocio Sanchez MD LAB BLOOD ORDERABLES Final Re sult documented in this encounter Visit Diagnoses Not on filedocumented in this encounter Additional Health Concerns Assessment Noted Time PHQ-9 Depression Total Score: 2 06/12/20 15 2:52 PM EDT documented as of this encounter Care Teams Greenhouse Staff Relationship Specialty Start Date End Date Linnea Leach APRN [address] [phone] PCP - General 04/06/21 documented as of this encounter
--- OUTSIDE RECORDS SUMMARY | 2025-01-05 15:43 | XMS_ITS ---
Author Organization [facility] Address [address] [facility] [address] [place] [address] Care Team Providers Care Removable Prosthodontist Name Role Phone JOSUE MORALES Primary Care Provider Encounters Encounter Location Date Provider Diagnosis [facility] [phone] 01/03/2025 JOSUE MORALES Plan Of Treatment Next Appt Details Provider Name:JOSUE CUNNINGHAM, 02/08/2025 02:30:00 PM, [address] [place] [address], [address], [place], [address], Provider Name:JOSUE CUNNINGHAM, 02/21/2025 09:00:00 AM, [address] [place] [address], [phone], Progress Notes * RODERICK ASTORGA TDOB:[birth year] (64 yo F)Acc No.[id number]:01/03/2025 Lab Patient:?RODERICK ASTORGA Provider:?JOSUE MORALES MD :1960???Age:64 Y???Sex:Female D ate:01/03/2025 Address:[address], [facility] [phone] Subjective: * Chief Complaints: * ??? * Medical History:? Objective: * Vitals:? Assessment: Plan: * Treatment: * * Electronic signature of CINTHYA MORALES MD on 01/05/2025 at 03:42 PM EDT Sign off status: Pending * Provider:?JOSUE MORALES MD Date:?07/2025 Generated for Daniel abdi/David/Margarito on:?01/05/2025 03:42 PM EDT
--- OUTSIDE RECORDS SUMMARY | 2025-01-05 15:43 | XMS_ITS | Encounter Summary ---
Author Organization [facility] Address [address] [place] [address] Care Team Providers [facility] Name Role Phone Linnea Leach APRN Primary Care Provider [phone] Encounter Details Date Type Department Care Team (Late st Contact Info) Description 04/14/2015 Scanned Document [facility] [address] [facility] [address] [facility] [place], [place] [phone] Ethan Roe MD [address] [place] [address] Social History Tobacco Use Types Packs/Day Years Used Date Smoking Tobacco: Former Comments:quit 10 years ago. Alcohol Use Standard Drinks/Week Comments No 0 (1 standard drink = 0.6 oz pur e alcohol) Comments No Sex and Gender Information Value Date Recorded Sex Assigned at Not on file Legal Sex Female 7:30 AM EST Gender Identity Not on file Sexual Orientation Not on file documented as of this encounter Plan of Treatment Not on file documented as of this encounter Visit Diagnoses Not on filedocumented in this encounter Additional Health Concerns Infection Onset Date Last Indicated Resolved Time R/O COVID-19 06/20/2021 06/20/2021 06/21/2021 1:42 PM EDT documented as of this encounter Care Teams [facility] Relationship Specialty Start Date End Date Linnea Leach APRN 52 [facility] [address] [place] [address] PCP - General 04/06/21 documented as of this encounter
--- OUTSIDE RECORDS SUMMARY | 2025-01-05 15:43 | XMS_ITS ---
Author Organization [facility] Address [address] [facility] [address] [place] [address] Care Team Providers Care Medicaid Biller Name Role Phone JOSUE MORALES Primary Care Provider Medications Medication SIG (Take, Route, Fr equency, Duration) Notes Start Date End Date Status metaxalone 800 mg 1 tablet orally TWIC E NIGHTLY for 90 days Active Encounters Encounter Location Date Provider Diagnosis [facility], [facility] [address] [facility] [address] [place] [address] 12/28/2024 JOSUE MORALES Muscle spasm M62.838 Assessments Encounter Date Diagnosis (ICD Code) Assessment Notes Treatment Notes Treatment Clinical Notes Section Notes 12/28/2024 Muscle spasm (ICD-10 - M62.838) Plan Of Treatment Medication Medication Name Sig Start Date Stop Date Notes metaxalone 800 mg 1 tablet orally TWIC E NIGHTLY for 90 days Next Appt Details Provider Name:JOSUE CUNNINGHAM, 02/08/2025 02:30:00 PM, [address], [place], [address], Provider Name:JOSUE CUNNINGHAM, 02/21/2025 09:00:00 AM, [address] [place] [address], [phone], Progress Notes * RODERICK ASTORGA TDOB:[birth year] (64 yo F)Acc No.[id number]:12/28/2024 Patient:?RODERICK ASTORGA :1960???Age:64 Y???Sex:Female Address:[address] [place] [address], [place] [address] * Refills? Refill metaxalone tablet, 800 mg, orally, 180, 1 tablet, TWICE NIGHTLY, 90 days, Refills=3 * true * Date:? Generated for Daniel abdi/David/eTransmitting on:?01/05/2025 03:42 PM EDT
--- OUTSIDE RECORDS SUMMARY | 2025-01-05 15:43 | XMS_ITS | Encounter Summary ---
Author Organization [facility] Address [address] [place] [address] Care Team Providers Care Information Technology Advisor Name Role Phone Linnea Leach RESIDENTIAL SERVICE TECHNICIAN Primary Care Provider [phone] Encounter Details Date Type Department Care Team (Latest Contact Info) Description 12/17/2023 Transcribed Orders [facility] [address] [place] [phone] Rocio Sanchez MD [address] [place] [phone] Hyperparathyroidism (HC Code) (Primary Dx) Social [...] of this encounter Plan of Treatment Scheduled Orders Name Type Priority Associated Diagnoses Orde r Schedule Calcium, timed urine (BH GH L YH) Lab Routine Hyperparathyroidism (HC Code) 1 Occurrences starting 12/17/2023 until 02/15/2025 documented as of this encounter Goals Goal [...] documented as of this encounter Care Teams Information Technology Advisor Relationship Specialty Start Date End Date Linnea Leach APRN [address] [phone] PCP - General 04/06/21 documented as of this encounter
== END 2025-01-05 16:32 | disposition home or self-care (01) ==
LOC: HO.HKAE 15:39
PROVIDERS: PCP Physician Assistant Medical; Visit Provider Internal Medicine Hypertension Specialist
DX: R80.9 Proteinuria, unspecified (principal); I10 Essential (primary) hypertension
CPT/HCPCS: 98012

== ENCOUNTER → 2025-01-05 15:39 | Outpatient (BNVA) | payer MEDICAID, SELFPAY | PROVIDERS: PCP Physician Assistant Medical; Visit Provider Internal Medicine Hypertension Specialist ==

== ENCOUNTER 2025-04-06 13:05 | Outpatient (AMB) | payer MEDICAID, SELFPAY ==
--- OUTSIDE RECORDS SUMMARY | 2025-02-08 10:30 | XMS_ITS ---
Author Organization [facility] [employer], [facility] Address [address] [facility] [address] [place] [address] Care Team Providers Care President And Chief Commercial Officer Name Role Phone JOSUE MORALES Primary Care Provider Allergies Allergen (clinical drug ingredient) Drug/Non Drug Allergy documented on EMR Reaction Allergy Type Onset Date Status Penicillin (uncoded) Unknown Allergy Active Peanuts Anaphylaxis Drug Allergy 04/30/2023 Acti ve REASON FOR VISIT CPE, EKG, O2, Labs in interface, Spirometry, Peakflow Social History Tobacco Use: Social History Observation Description Date Details (start date - stop date) Former Smoker NA - NA Sex Assigned At : Social History Observation Description Sex Assigned At Female AUDIT-C (Standard) Question Answer Notes Did you [...] less (1 point) Points 1 Interpretation Negative Tobacco Control (Standard) Question Answer Notes Tobacco use: Former smoker Section Notes: Ex Smoker: 40 years x 0.75 ppd = 30 pack years- stopped tobacco x 20yrs. EtOH: no abuse Drugs: none Lives. 5 children and lives w/ daughter. /. Problems Problem Type SNOMED Code ICD Code Onset Dates Problem Status W/U Status Risk Notes Problem Hyperglycemia due to type 2 diabetes mellitus (175950917704258) Type 2 diabetes mellitus with hyperglycemia (E11.65) Active confirmed Encounters Encounter Location Date Provider Diagnosis [facility], [facility] [address] [place] [address] 02/08/2025 JOSUE MORALES Encounter for general adult medical examination with abnormal findings Z00.01 ; Encounter for screening examination for other mental health and behavioral disorders Z13.39 ; Encounter for screening for depression Z13.31 ; Encounter for examination of eyes and vision with abnormal findings Z01.01 and Hearing screen passed Z01.10 Assessments Encounter Date Diagnosis (ICD Code) Assessment Notes Treatment Notes Treatment Clinical Notes Section Notes 02/08/2025 Encounter for general adult medical examination with abnormal findings (ICD-10 - Z00.01) 02/08/2025 Encounter for screening examination for other mental health and behavioral disorders (ICD-10 - Z13.39) 02/08/2025 Encounter for screening for depression (ICD-10 - Z13.31) 02/08/2025 Encounter for examination of eyes and vision with abnormal findings (ICD-10 - Z01.01) 02/08/2025 Hearing screen passed (ICD-10 - Z01.10) Plan Of Treatment Next Appt Details Follow Up: 1 year CPE, prn, Reason: Provider Name:JOSUE CUNNINGHAM, 04/26/2025 11:00:00 AM, [address], [place], [address], Procedure Notes * Category Sub-Category Detail Notes General EKG Done today, see report Spirometry 04/23/2023 O2 Saturation (finger oxymetry) Obtained Bone density 12/13/2023 Flu shot 07/02/2022 Drug Screen 07/13/2024 Progress Notes * CARLOSChungRODERICK TDOB:[birth year] (64 yo F)Acc No.[id number]:02/08/2025 Progress Notes Patient: RODERICK MUÑOZ Provider: Yvonne MORALES MD :1960 A ge:64 Y S ex:Female Date:02/08/2025 Address:[address] [place] [address], [place], [id number] Subjective: * Chief Complaints: * 1 . CPE, EKG, O2. 2. Labs in interface. 3. Spirometry, Peakflow. * HPI: G eneral: CPE P t. here for a Routine Annual Physical Exam. Pre-visit planning completed. Specialist list reviewed. Dental/ophtalmology care reviewed. Past and more recent consultations, labs and diagnostic imaging reviewed. Medications reconciliation completed.. - Due for Colonoscopy, PAP Smear, Screening mammogram - Due for Shingrix (IH), Tdap (IH). * ROS: G eneral: no w eight change. n o l oss of appetite. n o?fever. n o f atigue. H EENT: no h eadache. v ision n ormal. h earing n ormal. n o t innitus. v ertigo n ormal. n o e pistaxis. n o s ore throat. n o h oarseness. E NT/respiratory: no c old. n o c ough. n o c oughing blood.?no n ose bleed. n o h earing loss. n o c hange in voice. n o s ore throat. n o r inging in ears. C ardiology: no c hest pain. n o p alpitations. n o l eg swelling. n o d izziness. n o s hortness of breath. G jhonatan enterology: no d ifficulty swallowing. n o a bdominal pain.?no n ausea. n o v omiting. n o c onstipation. n o d iarrhea. n o?blood in stool. n o c hange in bowel habits. n o b loating/belching. ? G enitourinary female: no d ysmenorrhoea. n o h ot flashes. n o v aginal discharge. n o b lood in urine. n o d ifficulty urinating. n o i ncreased urinary frequency. n o u rinary incontinence. n o u rinary urgency. ? N eurology: no h eadache. n o p aresthesias. n o s eizure. M usculoskeletal: no j oint swelling. n o j oint pain. n o l eg cramps. n o j oint stiffness. P sychology: tension/stress n ormal. n o d epression. n o?sleep disturbances. E ndocrinology: no t iredness. n o e xcessive sweating. n o?polydipsia. O pthalmology: no d iminished vision. n o e ye irritation. n o?drainage from eyes. n o b lurring of vision. D ermatology: no r jose david. n o m oles. n o l umps. ? * Medical History: D M2/nephropathy, CKD2/anemia, COPD/past tobacco, Anemia/vitB12/iron def, Vitamin D deficiency, Tachycardia, Restrictive lung disease, JAKI/depression/panic, Hyperparathyroid/hypercalcemia, ECG-LAD/LaFB, Hypercholesteremia, UTI (urinary tract infection), PVD (peripheral vascular disease), Panic attack, Other chronic pain, Osteoarthritis, Migraines, Left axis deviation, Left anterior hemiblock, Iron deficiency anemia, unspecified iron deficiency anemia type, Hypertensive heart disease without heart failure, Headache, migraine, intractable, GERD (gastroesophageal reflux disease), Exposure, Ex-smoker, Essential hypertension, Controlled substance agreement signed, Chronic pain disorder, Anxiety and depression, Anemia due to vitamin B12 deficiency, unspecified B12 deficiency, Allergic rhinitis, Hypercalcemia, Type 2 diabetes mellitus with hyperglycemia, Diabetic nephropathy associated with type 2 diabetes mellitus, Hyperparathyroidism, JAKI (generalized anxiety disorder), Stage 2 chronic kidney disease, Microalbuminuria, Vitamin B deficiency, Hypercholesteremia, Hypertriglyceridemia, Chronic sinusitis, Gross hematuria, ADRIÁN (acute kidney injury). * Surgical History: M AJOR BACK SURGERY 06/11. * Hospitalization/Major Diagno stic Procedure: M AJOR BACK SURGERY 05/2018, Osteoarthritis of right kneww 05/20/2019. * Family History: F ather: . M other: . P aternal Grand Father: . P aternal Grand Mother: . M aternal Grand Father: . M aternal Grand Mother: . Siblings: alive. C hildren: alive. 4 brother(s) , 1 sister(s) - healthy. 1 son(s) , 1 daughter(s) - healthy. . * Social History: D rug/Alcohol: A SIDDHARTHA-C (Standard) D id you have a drink containing alcohol in the past year? Y es,?How often did you have six or more drinks on one occasion in the past year? N ever (0 point), H ow many drinks did you have on a typical day when you were drinking in the past year? 1 or 2 drinks (0 point), H ow often did you have a drink containing alcohol in the past year??Monthly or less (1 point), P oints 1 , I nterpretation N egative. T obacco Use: T obacco Control (Standard) T obacco use: F ormer smoker. E x Smoker: 40 years x 0.75 ppd = 30 pack years- stopped tobacco x 20yrs. EtOH: no abuse Drugs: none Lives. 5 children and lives w/ daughter. /. * Allergies: P enicillin, Peanuts: Anaphylaxis - Criticality Unknown - Onset Date 04/30/2023. Objective: * Vitals: * Physical Examination: G eneral: appearence p leasant. b uild a verage. H EENT: ear canals n ormal. e ar drums n ormal. h ead?normocephalic. s clera A nicteric. p upils E RLA. E OM i ntact. f undi n ormal. n ria septum m idline. o ral cavity n ormal. N porfirio: neck s upple. t hyroid N ot enlarged. c ervical lymph nodes n ormal. c arotid bruit a bsent. R OM n ormal. H eart: PMI n ormal. r hythm r egular. m urmurs, clicks, rubs, gallops n o. h eart sounds n ormal. c licks n o. C hest: shape and expansion n ormal. p ercussion n ormal.?breath sounds n ormal. w heezes, rhonchi, rales n o. w heezes n o. b reasts d eferred to Physiology Teacher. a xillary nodes n ormal. A bdomen: shape n ormal. s cars n o. g uarding n o.?tenderness n o. m asses n o. l iver, spleen n ot palpable. i ng.nodes?not enlarged. h ernia a bsent. B ack: spine n ormal. c va tenderness n o. S I joints?non tender. S LR n ormal. E xtremities: edema n o. c yanosis n o. c lubbing n o.?tremors n o. v ericose veins a bsent. p ulses 2 + bilateral. N eurological: cranial nerves N ormal. s ensory N ormal. m otor N ormal. c oordination N ormal. r eflexes 2 +. b abinski N egative.?gait N ormal. M usculoskeletal: upper extremity joints N ormal. l ower extremity joints?Normal. c ervical spines N ormal. L -S spines n ormal. D ermatology: moles b enign appearing. G enitourinary female: Gynecology exam D eferred to Physiology Teacher. Assessment: * Assessment: 1. E ncounter for general adult medical examination with abnormal findings - Z00.01 (Primary)? 2. E ncounter for screening examination for other mental health and behavioral disorders - Z13.39 3 . E ncounter for screening for depression - Z13.31 ? 4 . E ncounter for examination of eyes and vision with abnormal findings - Z01.01 ? 5 . H earing screen passed - Z01.10 Plan: * Treatment: * Procedures: G eneral: EKG D one today, see report. Spirometry . O2 Saturation (finger oxymetry) O btained. D rug Screen 1 09/12/2023. B one density . Flu shot 1 09/01/2021. S ARS-COV-2 - 07/03/2021, 06/12/2021. * Procedure Codes: 9 3000 Electrocardiogram, 39644 VISUAL ACUITY SCREEN, Modifiers: 59 , 74907 BRIEF EMOTIONAL/BEHAV ASSMT, Modifiers: 59 , 07953 EVOKED AUDITORY TEST, 83463 Oxymetry, single * Preventive Medicine: Counseling: d iet and weight loss B NC Management Counseling provided Y es.?exercise R ecommended starting/mantaining a healthy routine of physical activity including 30 minutes of vigorous exercise at least 3 times per week,. s exual practices P atient counseled about safe sexual practices. b reast self exam P eriodic self breast examination recommended. d omestic violence P t does not report any significant issue of domestic violence.?sunscreen R ecommended safe skin care practices and careful skin cancer prevention. Routine application of at least 30SPF sunscreen strongly recommended before sun exposure. a lcohol and drugs A lcohol screening completed. Healthy alcohol drinking guidelines reviewed.. * Follow Up: 1 year CPE, prn Care Plan: * Problems: * * Electronic signature of CINTHYA MORALES MD on 04/06/2025 at 01:38 PM EDT Sign off status: Pending * Provider: Yvonne MORALES MD Date: 0 02/08/2025 Generated for Daniel abdi/David/Margarito on: 0 04/06/2025 01:38 PM EDT History and Physical Notes * HPI (History of Present Illness) Category Sub-Category Detail Notes Category Not es General CPE Pt. here for a R outine Annual Physical Exam. Pre-visit planning completed. Specialist list reviewed. Dental/ophtalmology care reviewed. Past and more recent consultations, labs and diagnostic imaging reviewed. Medications reconciliation completed. - Due for Colonoscopy, PAP Smear, Screening mammogram - Due for Shingrix (IH), Tdap (IH) Physical Examination Category Sub-Category Detail Notes Section Note s HEENT ear canals normal ear drums normal head normocephalic sclera Anicteric pupils ERLA EOM intact fundi normal nasal septum midline oral cavity normal neck neck supple thyroid Not enlarged cervical lymph nodes normal carotid bruit absent ROM normal extremities edema no cyanosis no clubbing no tremors no vericose veins absent pulses 2+ bilateral back spine normal cva tenderness no SI joints non tender SLR normal chest shape and expansion normal percussion normal breath sounds normal wheezes, rhonchi, rales no wheezes no breasts deferred to Physiology Teacher axillary nodes normal heart PMI normal rhythm regular murmurs, clicks, rubs, gallops no heart sounds normal clicks no abdomen shape normal scars no guarding no tenderness no masses no liver, spleen not palpable ing.nodes not enlarged hernia absent neurological cranial nerves Normal sensory Normal motor Normal coordination Normal reflexes 2+ babinski Negative gait Normal musculoskeletal upper extremity joints Normal lower extremity joints Normal cervical spines Normal L-S spines normal genitourinary female Gynecology exam Deferred to Physiology Teacher genitourinary male external genitals testicles hernia hemorrhoids prostate occult blood dermatology moles benign appearing general appearence pleasant build average
--- NOTE | 2025-04-06 13:05 | HO.NEPHOV ---
Vital Signs 04/06/25 13:07 Height 5 ft 7 in Intake Visit Reasons: Mar follow-up- CONF Educational Therapy Teacher Required: No Accompanied by: Self / Same As Patient Allergies peanut Allergy (Unknown, Verified 04/06/25 13:06) Unknown Penicillins Allergy (Unknown, Verified 04/06/25 13:06) Unknown Medication List - Last Reconciled 04/06/25 by Koyb Davalos MD acetaminophen (Tylenol) 325 mg PO QID PRN cholecalciferol (vitamin D3) 1,250 mcg PO QWEEK ciprofloxacin HCl 500 mg PO BID clonazepam 2 mg PO BID PRN cyanocobalamin (vitamin B-12) ER 1,000 mcg PO DAILY evolocumab (Repatha Syringe) mg subcut Q2W ferrous sulfate 27 mg PO DAILY fluoxetine 60 mg PO DAILY iron aspgly,[id number] 150-60-25-1 cd-tf-[id number]-mg (Ferrex) 1 cap PO DAILY lisinopril 10 mg PO DAILY metaxalone 800 mg PO BID metformin 850 mg PO BID pantoprazole 40 mg PO DAILY tramadol 50 mg PO BID PRN HPI Comments Details: Sonya is a pleasant 64-year-old woman with a history of obesity diabetes mellitus and hypertension. She was found to have microalbuminuria and hence this referral. She was prescribed semaglutide but she was not take Can this yet. She is not on any ENZO inhibitors or ARB is. She is on propranolol which apparently was given few years ago for hypertension. She was accompanied by her family members. 01/05/25 She stopped Losartan BP remains elevated c/o Knee pain 04/06/2025. Today was a tele visit. No specific complaints today. [facility] Medical History (Updated 02/17/25 @ 09:16 by Koby Davalos MD) Hypercholesteremia Hyperparathyroidism Hypercalcemia Restrictive lung disease Essential hypertension Hypertensive heart disease without heart failure Chronic pain disorder Tachycardia Migraine GERD (gastroesophageal reflux disease) Osteoarthritis Anxiety and depression Type 2 diabetes mellitus Telehealth Telehealth Telehealth Platform: Telephone Location of provider rendering services: practice address Location of patient: address on file Patient Identification confirmed using: Name, : Yes Telehealth method: voice only Patient verbally consented to treatment: Yes Patient verbally consented to billing insurance company: Yes Patient informed of any privacy concerns related to visit: Yes Results Reviewed Results Reviewed: UA noted Assessment & Plan Assessment & Plan (1) Microalbuminuria: Code(s): R80.9 - Proteinuria, unspecified Category: Medical (2) Essential hypertension: Code(s): I10 - Essential (primary) hypertension Category: Medical Plan 64-year-old woman with obesity diabetes mellitus hypertension with microalbuminuria. Renal function stable with a serum creatinine 0.8 mg/dL. She has underlying diabetic kidney disease. Goal is to slow the portion disease Maintain A1c less than 7%. She will benefit from ENZO inhibition. keep Lisinopril 10 mg QD and monitor BP and urine protein excretion Maintain blood pressure less than 130/80 She will also benefit from SGLT2 inhibitors. Orders: Orders Total Protein Urine Random 6 Months I10 - Essential (primary) hypertension, R80.9 - Proteinuria, unspecified Creatinine Urine 6 Months I10 - Essential (primary) hypertension, R80.9 - Proteinuria, unspecified Basic Metabolic Panel 6 Months I10 - Essential (primary) hypertension, R80.9 - Proteinuria, unspecified Coding Level of Care Code Tele Est Pt Level 2 (37954) Diagnoses Microalbuminuria R80.9 Essential hypertension I10
--- OUTSIDE RECORDS SUMMARY | 2025-04-06 13:39 | XMS_ITS | Patient Health Record ---
Author Organization [facility] Address [address] [place], [place] [address] Support Name Relationship Address Phone Sonya Hankins Guarantor Unknown Allergies Allergen (clinical drug ingredient) Drug/Non Drug Allergy documented on EMR Reaction Allergy Type Onset Date Status penicillin G Penicillin G Potassium Unknown Drug Allergy Active Reason For Referral No Information Medications Medication SIG (Take, Route, Frequency, Duration) Notes Start Date End Date Status Lipitor 20 MG 1 tablet Orally Once a day Active PROzac 40 MG 1 capsule in the mor rcoío Orally Once a day Active clonazePAM 2 MG 1 tablet Orally Twic e a day Active Metaxalone 800 MG 1 tablet Orally Thre e times a day Active Pantoprazole Sodium 20 MG 2 tablets Oral ly Once a day Active metFORMIN HCl 850 MG 1 tablet with a jonathan l Orally Once a day Active Problems Problem Type SNOMED Code ICD Code Onset Dates Problem Status W/U Status Risk Notes Problem Low back pain (291654228) Low back pain (M54.5) Active confirmed Problem Pain of right shoulder region (finding) (9464101332) Pain in right shoulder (M25.511) Active confirmed Problem Shoulder joint pain (210230950) Pain in left shoulder (M25.512) Active confirmed Problem Arthralgia of the pelvic region and thigh (005519463) Pain in right hip (M25.551) Active confirmed Problem Pain of left hip joint (finding) (928584442777357 ) Pain in left hip (M25.552) Active confirmed Problem Pain in right knee (M25.561) Active confirmed Problem Pain of left knee joint (finding) (797722385580933 ) Pain in left knee (M25.562) Active confirmed Problem Cervicalgia (50656815) Cervicalgia (M54.2) Active confirmed Plan Of Treatment Pending Test Test Name Order Date Urinalysis - Reveal NEW 05/22/2016 Urinalysis - Reveal NEW 06/06/2016 6-acetylmorphine 05/22/2016 Insurance Providers Payer Name Payer Address Payer Phone Subscriber Number Group Number Insured Name Patient Relationship to Insured Coverage Start Date Coverage End Date Medicaid [facility] [address] [place] [address] [id number] Sonya Fitzgerald Self - patient is the insured Medical (General) History Medical History History ICD Code right hip per pt referral: knee pain a nd swelling, anxiety/ depression, GERD, hypertension, hyperlipidemia, diabetes Surgical History Surgery Date(Month/Year) Right foot cyst removal 2014 [place] teeth extraction
--- OUTSIDE RECORDS SUMMARY | 2025-04-06 13:39 | XMS_ITS | Patient Health Record ---
Author Organization [facility] Address [address] [place] [address] Care Team Providers Care Outpatient Physical Therapist Assistant Name Role Phone Rocio Sanchez Unavailable Unavailable Devendra You Unavailable [phone] Allergies No Known Allergies Reason For Referral [...] Encounter Location Date Provider Diagnosis -Internal Medicine [address] [place] [phone] 06/15/2024 You Ramsay Plan Of Treatment No Information Insurance Providers Payer Name Payer Address Payer Phone Subscriber Number Group Number Insured Name Patient Relationship to Insured Coverage Start Date Coverage End Date [employer] [address] [place], [place] [id number] [phone] [id number] Sonya Hankins Self - patient is the insured Medical (General) History Surgical History Surgery Date(Month/Year)
--- OUTSIDE RECORDS SUMMARY | 2025-04-06 13:39 | XMS_ITS | Encounter Summary ---
Author Organization [facility] Address [address] [place] [address] Care Team Providers Care Beamer Helper Name Role Phone Rocio Sanchez MD Primary Care Provider [phone] Encounter Details Date Type Department Care Team (Late st Contact Info) Description 02/23/2025 Scanned Document [address] [place] [phone] Provider, Generic Social History Tobacco Use Types Packs/Day Years Used Date Smoking Tobacco: Never Smokeless Tobacco: Never Alcohol Use Standard Drinks/Week Comments Not Currently [...] drinks on one occasion? Never 04/30/2023 Comments No Sex and Gender Information Value Date Recorded Sex Assigned at Female 10/25/2024 7:35 PM EST Legal Sex Female 5:49 PM EDT Gender Identity Not on file Sexual Orientation Not on file documented as of this encounter Plan of Treatment Upcoming Encounters Date Type Department Care Team (Late st Contact Info) Description 04/27/2025 2:30 PM EDT Office Visit [address] [place] [phone] Marisa Nelson PA-C [address] [place] [address] 06/29/2025 3:30 PM EST Office Visit [facility] [address] [phone] Ele Miller, PA-C [address] [address] documented as of this encounter Visit Diagnoses Not on filedocumented in this encounter Care Teams Beamer Helper Relationship Specialty Start Date End Date Rocio Sanchez MD PCP - General Internal Medicine 12/05/22 documented as of this encounter
== END 2025-04-06 13:39 | disposition home or self-care (01) ==
LOC: HO.HKAE 13:05
PROVIDERS: PCP Physician Assistant Medical; Visit Provider Internal Medicine Hypertension Specialist
DX: R80.9 Proteinuria, unspecified (principal); I10 Essential (primary) hypertension
CPT/HCPCS: 99212